=== PATIENT | male | born 1995 | race Hispanic/Latino ===

== ENCOUNTER 2024-04-17 21:36 | Inpatient (IN) | payer OTHER, SELFPAY ==
[2024-04-17] VITALS (10 sets, daily range): BP systolic 119–166; BP diastolic 60–103; BMI 18.3
[2024-04-17 15:42] LABS: % Basophils 0.7 % (0-2); % Immature Granulocytes 0.6 % (0-0.5); % Monocytes 2.8 % (1.7-9.3); % Neutrophils 91.9 % (42.2-75.2); Absolute Basophils 0.1 10^3/uL (0-0.2); Absolute Immature Granulocytes 0.1 10^3/uL (0-0.05); Absolute Lymphocytes 0.6 10^3/uL (1.2-3.4); Absolute Monocytes 0.4 10^3/uL (0.1-0.6); Absolute Neutrophils 14.1 10^3/uL (1.4-6.5); Hematocrit 45.5 % (39.0-52.0); Mean Corp Hgb Conc. 35.2 g/dL (33.0-37.0); Mean Corpuscular Hgb 31.8 pg (27.0-31.0); Mean Corpuscular Volume 90.5 fL (80.0-94.0); Mean Platelet Volume 8.9 fL (7.4-10.4); Nucleated Red Blood Cells % 0 % (-); Platelet Count 357 10^3/uL (130-400); Red Blood Cell Count 5.03 10^6/uL (4.70-6.10); Red Cell Dist. Width 11.5 % (11.5-14.5); White Blood Cell Count 15.3 10^3/uL (4.8-10.8)
[2024-04-17 15:59] LABS: ALT (SGPT) 65 U/L (0-50); AST (SGOT) 55 U/L (17-59); Albumin 5.7 g/dl (3.5-5.0); Alkaline Phosphatase 105 U/L (38-126); Blood Urea Nitrogen 9 mg/dl (9-20); Calcium 10.2 mg/dl (8.4-10.2); Carbon Dioxide 20 mmol/L (22-30); Chloride 100 mmol/L (98-107); Estimated Creatinine Clearance 123 ml/min; Glucose 141 mg/dl (70-99); Lipase 84 U/L (23-300); Potassium 4.4 mmol/L (3.5-5.1); Sodium 143 mmol/L (135-145); Total Bilirubin 1.2 mg/dl (0.2-1.3); Total Protein 9.3 g/dl (6.3-8.2); eGFR > 60.00
[2024-04-17 16:06] LABS: Troponin I < 0.012 ng/ml
--- NOTE | 2024-04-17 16:10 | ED.GENMED ---
Addendum entered and electronically signed by Albert Álvarez MD 04/17/24 22:48:
I was asked to evaluate this young patient with relatively sudden onset of upper abdominal pain radiating to the chest earlier today. He was awaiting CT scan. Associated with some nausea and vomiting. No history of same.
Patient was in CT. Because of the sudden severe chest pain and mild tachycardia elected to add CT angio of the chest. However on reexamination patient clinically is stable in no distress. He has mild epigastric tenderness. No rebound or guarding
no mass or hernia. Is warm and dry. He is perfusing well. He is in no respiratory distress. CT scans pending result.
CT scan showed no acute findings. Possible mild colitis. However patient with ongoing significant pain. Although medically stable. Will admit for further care and pain management
Original Note:
History of Present Illness
<Demetria Cortez MD, Resident - Last Filed: 04/17/24 16:28>
General
Chief Complaint: Chest Pain
Time Seen by Provider: 04/17/24 15:48
History of Present Illness
History of Present Illness:
28-year-old male presenting to the ED with abdominal pain. Patient does not speak [place]. Notes symptoms started this morning with severe abdominal pain (10 out of 10) located in the epigastric region. Pain is associated with nausea vomiting, is
constant and is not relieved by laying down. Unable to tolerate water and food. Has not taken any medications for his symptoms. Patient also notes left-sided headache which has been going on for a few days and blurry vision. Has a history of
headaches and feels headache is similar to prior episodes but constant. Denies changes in bowel movement, urinary symptoms, fever, bloody stools, melena.
Past History
<Demetria Cortez MD, Resident - Last Filed: 04/17/24 16:28>
Past History
ED Past Medical History: None
ED Past Surgical History: None
Review of Systems
<Demetria Cortez MD, Resident - Last Filed: 04/17/24 16:28>
Review of Systems
Constitutional: Reports sleep disturbance
EENT: Reports no symptoms
Respiratory: Reports no symptoms
Cardiac: Reports chest pain and palpitations
ABD/GI: Reports abdominal pain, nausea and vomiting
: Reports no symptoms
Musculoskeletal: Reports no symptoms
Skin: Reports no symptoms
Neurological: Reports dizzy and other (Blurry vision)
Endocrine: Reports no symptoms
Hematologic/Lymphatic: Reports no symptoms
Psychiatric: Reports no symptoms
Phy Exam
<Demetria Cortez MD, Resident - Last Filed: 04/17/24 16:28>
Physical Exam
Physical Exam:
GENERAL: Alert, awake, patient looks in pain
EYE: pupils equal and reactive
NECK: Supple, no significant adenopathy.
ENT: o/p clr, mmm.
CARDIAC: Regular rhythm. Tachycardic.
LUNGS: Clear breath sounds bilaterally, no acute respiratory distress, no wheezes/rales/rhonchi
ABDOMEN: Tenderness in RLQ, no r/g, no cvat
NEUROLOGICAL: Alert and oriented, no focal neuro deficits. [id number] negative. No nystagmus.
SKIN: Warm and dry, skin intact.
MUSCULOSKELETAL: No edema, well perfused.
PSYCH: Normal and appropriate interaction.
Scores
<Demetria Cortez MD, Resident - Last Filed: 04/17/24 16:28>
Heart Score for Chest Pain Patients
STEMI patient?: No
History: Slightly or Non-Suspicious
ECG: Normal
Age: </= 45 years
Risk Factors: No Risk Factors
Troponin: </= Normal Limit
Heart Score for Chest Pain Patients: 0
Heart Score Risk: 2.5% MACE over next 6 weeks
Course
<Demetria Cortez MD, Resident - Last Filed: 04/17/24 16:28>
Orders/Labs/Results
Orders:
Orders
04/17/24 14:20
Electrocardiogram (*1) Urgent
Reason for Study: Chest Pain
EKG- Treatment ONCE
04/17/24 15:31
Complete Blood Count/With Diff Urgent
Comprehensive Metabolic Panel Urgent
Lipase Urgent
Troponin I Urgent
04/17/24 16:13
Iohexol [Omnipaque] See Protocol PO NOW STA
04/17/24 16:14
CT Abd/pel W Iv And Oral Contr Urgent
Comment:
Reason For Exam: abd tenderness, leukocytosis
0.9% Sodium Chloride 1000 ml [Nss] 1,000 ml IV BOLUS
04/17/24 16:16
Ondansetron Orally Disint [Zofran Odt (Orally Disintegrating)] 4 mg PO NOW STA
Abnormal Lab Results
04/17/24
15:31
WBC 15.3 H 10^3/uL
(4.8-10.8)
MCH 31.8 H pg
(27.0-31.0)
Abs Immat Gran (auto) 0.1 H 10^3/uL
(0-0.05)
Absolute Neuts (auto) 14.1 H 10^3/uL
(1.4-6.5)
Absolute Lymphs (auto) 0.6 L 10^3/uL
(1.2-3.4)
Immature Gran % 0.6 H %
(0-0.5)
Neutrophils % 91.9 H %
(42.2-75.2)
Lymphocytes % 4.0 L %
(20.5-51.1)
Carbon Dioxide 20 L mmol/L
(22-30)
Creatinine 0.6 L mg/dL
(0.7-1.3)
Glucose 141 H mg/dl
(70-99)
ALT 65 H U/L
(0-50)
Total Protein 9.3 H g/dl
(6.3-8.2)
Albumin 5.7 H g/dl
(3.5-5.0)
04/17/24 15:31
04/17/24 15:31
Vital Signs
Initial and Last Documented VS:
Initial Vital Signs
Temp Pulse Resp BP Pulse Ox
98.1 F 135 18 150/86 97
04/17/24 14:31 04/17/24 14:31 04/17/24 14:31 04/17/24 14:31 04/17/24 14:31
Last Documented Vital Signs
Temp Pulse Resp BP Pulse Ox
98.1 F 135 18 150/86 97
04/17/24 14:31 04/17/24 14:31 04/17/24 14:31 04/17/24 14:31 04/17/24 14:31
<Siena Kingsley MD - Last Filed: 04/17/24 16:14>
Orders/Labs/Results
Orders:
Orders
04/17/24 14:20
Electrocardiogram (*1) Urgent
Reason for Study: Chest Pain
EKG- Treatment ONCE
04/17/24 15:31
Complete Blood Count/With Diff Urgent
Comprehensive Metabolic Panel Urgent
Lipase Urgent
Troponin I Urgent
04/17/24 16:13
Iohexol [Omnipaque] See Protocol PO NOW STA
04/17/24 16:14
CT Abd/pel W Iv And Oral Contr Urgent
Comment:
Reason For Exam: abd tenderness, leukocytosis
0.9% Sodium Chloride 1000 ml [Nss] 1,000 ml IV BOLUS
04/17/24 16:16
Ondansetron Orally Disint [Zofran Odt (Orally Disintegrating)] 4 mg PO NOW STA
Abnormal Lab Results
04/17/24
15:31
WBC 15.3 H 10^3/uL
(4.8-10.8)
MCH 31.8 H pg
(27.0-31.0)
Abs Immat Gran (auto) 0.1 H 10^3/uL
(0-0.05)
Absolute Neuts (auto) 14.1 H 10^3/uL
(1.4-6.5)
Absolute Lymphs (auto) 0.6 L 10^3/uL
(1.2-3.4)
Immature Gran % 0.6 H %
(0-0.5)
Neutrophils % 91.9 H %
(42.2-75.2)
Lymphocytes % 4.0 L %
(20.5-51.1)
Carbon Dioxide 20 L mmol/L
(22-30)
Creatinine 0.6 L mg/dL
(0.7-1.3)
Glucose 141 H mg/dl
(70-99)
ALT 65 H U/L
(0-50)
Total Protein 9.3 H g/dl
(6.3-8.2)
Albumin 5.7 H g/dl
(3.5-5.0)
04/17/24 15:31
04/17/24 15:31
Vital Signs
Initial and Last Documented VS:
Initial Vital Signs
Temp Pulse Resp BP Pulse Ox
98.1 F 135 18 150/86 97
04/17/24 14:31 04/17/24 14:31 04/17/24 14:31 04/17/24 14:31 04/17/24 14:31
Last Documented Vital Signs
Temp Pulse Resp BP Pulse Ox
98.1 F 135 18 150/86 97
04/17/24 14:31 04/17/24 14:31 04/17/24 14:31 04/17/24 14:31 04/17/24 14:31
<Demetria Cortez MD, Resident - Last Filed: 04/17/24 16:28>
MDM/Problems Addressed
Differential Diagnosis Includes:
Appendicitis
Cholelithiasis
Complicated PUD
Pancreatitis
ACS
Nephrolithiasis
MDM/Problems Addressed:
- Zofran
- IVF
- CBC, CMP
- EKG, Troponin
- Abd/pelvis CT w IV and oral contrast
<Demetria Cortez MD, Resident - Last Filed: 04/17/24 16:28>
*Critical Care Note
Total Time (30-74mins, 75-104mins- exclusive of procedures): Not Applicable
ED Attending Note
<Demetria Cortez MD, Resident - Last Filed: 04/17/24 16:28>
-
Portions of this chart may have been created with voice recognition software.� Occasional wrong word or��sound alike� substitutions may have occurred due to the inherent limitations of voice recognition software.
<Siena Kingsley MD - Last Filed: 04/17/24 16:14>
ED Attending Note
Patient seen and examined by attending physician: Yes
I performed a history and physical exam of patient and discussed management with resident, I reviewed resident's note and agree with documented findings and plan of care.: Yes
ED Attending Note:
Patient appears slightly flushed but nontoxic. On exam patient has epigastric and right lower quadrant tenderness. LFTs look reasonably normal. We are concern for possibly acute appendicitis. CT with IV and oral contrast will be ordered at this
time. Patient has no sign of respiratory distress.
Discharge Plan
Departure
Referrals:
NONE,* [Family Provider] -
Interventions
Interventions:
*Risk Screen - Suicide Last Done: 04/17/24 14:31
*General Assessment Last Done: 04/17/24 14:31
Discharge Date and Time
Print Language: TRINIDADIAN
[2024-04-17] MEDS: OMNIPAQUE 50 ML PO (16:39)
[2024-04-17] MEDS: ZOFRAN ODT (ORALLY DISINTEGRATING) 4 MG PO (16:41)
[2024-04-17] MEDS: NSS 1000 IV ×2 (16:44→23:16)
[2024-04-17] MEDS: TORADOL 30 MG IV (17:26)
--- NOTE | 2024-04-17 18:23 | ED.GENMED ---
History of Present Illness
<Albert Álvarez MD - Last Filed: 04/17/24 19:25>
General
Chief Complaint: Chest Pain
Time Seen by Provider: 04/17/24 15:48
Past History
<Demetria Cortez MD, Resident - Last Filed: >
Past History
ED Past Medical History: None
ED Past Surgical History: None
Course
<Albert Álvarez MD - Last Filed: 04/17/24 19:25>
Orders/Labs/Results
Orders:
Orders
04/17/24 14:20
Electrocardiogram (*1) Urgent
Reason for Study: Chest Pain
EKG- Treatment ONCE
04/17/24 15:31
Complete Blood Count/With Diff Urgent
Comprehensive Metabolic Panel Urgent
Lipase Urgent
Troponin I Urgent
04/17/24 16:13
Iohexol [Omnipaque] See Protocol PO NOW STA
04/17/24 16:14
CT Abd/pel W Iv And Oral Contr Urgent
Comment:
Reason For Exam: abd tenderness, leukocytosis
0.9% Sodium Chloride 1000 ml [Nss] 1,000 ml IV BOLUS
04/17/24 16:16
Ondansetron Orally Disint [Zofran Odt (Orally Disintegrating)] 4 mg PO NOW STA
04/17/24 17:04
Ketorolac [Toradol] 30 mg IV NOW STA
04/17/24 18:16
Electrocardiogram (*1) Urgent
Reason for Study: Chest Pain
EKG- Treatment ONCE
04/17/24 18:45
CT Chest Angio W/wo Iv Contras Urgent
Comment:
Reason For Exam: Sudden chest pain and abdominal pain
Abnormal Lab Results
04/17/24
15:31
WBC 15.3 H 10^3/uL
(4.8-10.8)
MCH 31.8 H pg
(27.0-31.0)
Abs Immat Gran (auto) 0.1 H 10^3/uL
(0-0.05)
Absolute Neuts (auto) 14.1 H 10^3/uL
(1.4-6.5)
Absolute Lymphs (auto) 0.6 L 10^3/uL
(1.2-3.4)
Immature Gran % 0.6 H %
(0-0.5)
Neutrophils % 91.9 H %
(42.2-75.2)
Lymphocytes % 4.0 L %
(20.5-51.1)
Carbon Dioxide 20 L mmol/L
(22-30)
Creatinine 0.6 L mg/dL
(0.7-1.3)
Glucose 141 H mg/dl
(70-99)
ALT 65 H U/L
(0-50)
Total Protein 9.3 H g/dl
(6.3-8.2)
Albumin 5.7 H g/dl
(3.5-5.0)
04/17/24 15:31
04/17/24 15:31
Vital Signs
Initial and Last Documented VS:
Initial Vital Signs
Temp Pulse Resp BP Pulse Ox
98.1 F 135 18 150/86 97
04/17/24 14:31 04/17/24 14:31 04/17/24 14:31 04/17/24 14:31 04/17/24 14:31
Last Documented Vital Signs
Temp Pulse Resp BP Pulse Ox
98.1 F 98 17 127/60 97
04/17/24 14:31 04/17/24 18:30 04/17/24 18:30 04/17/24 18:00 04/17/24 18:30
<Demetria Cortez MD, Resident - Last Filed: >
Orders/Labs/Results
Orders:
Orders
04/17/24 14:20
Electrocardiogram (*1) Urgent
Reason for Study: Chest Pain
EKG- Treatment ONCE
04/17/24 15:31
Complete Blood Count/With Diff Urgent
Comprehensive Metabolic Panel Urgent
Lipase Urgent
Troponin I Urgent
04/17/24 16:13
Iohexol [Omnipaque] See Protocol PO NOW STA
04/17/24 16:14
CT Abd/pel W Iv And Oral Contr Urgent
Comment:
Reason For Exam: abd tenderness, leukocytosis
0.9% Sodium Chloride 1000 ml [Nss] 1,000 ml IV BOLUS
04/17/24 16:16
Ondansetron Orally Disint [Zofran Odt (Orally Disintegrating)] 4 mg PO NOW STA
04/17/24 17:04
Ketorolac [Toradol] 30 mg IV NOW STA
04/17/24 18:16
Electrocardiogram (*1) Urgent
Reason for Study: Chest Pain
EKG- Treatment ONCE
04/17/24 18:45
CT Chest Angio W/wo Iv Contras Urgent
Comment:
Reason For Exam: Sudden chest pain and abdominal pain
Abnormal Lab Results
04/17/24
15:31
WBC 15.3 H 10^3/uL
(4.8-10.8)
MCH 31.8 H pg
(27.0-31.0)
Abs Immat Gran (auto) 0.1 H 10^3/uL
(0-0.05)
Absolute Neuts (auto) 14.1 H 10^3/uL
(1.4-6.5)
Absolute Lymphs (auto) 0.6 L 10^3/uL
(1.2-3.4)
Immature Gran % 0.6 H %
(0-0.5)
Neutrophils % 91.9 H %
(42.2-75.2)
Lymphocytes % 4.0 L %
(20.5-51.1)
Carbon Dioxide 20 L mmol/L
(22-30)
Creatinine 0.6 L mg/dL
(0.7-1.3)
Glucose 141 H mg/dl
(70-99)
ALT 65 H U/L
(0-50)
Total Protein 9.3 H g/dl
(6.3-8.2)
Albumin 5.7 H g/dl
(3.5-5.0)
04/17/24 15:31
04/17/24 15:31
Vital Signs
Initial and Last Documented VS:
Initial Vital Signs
Temp Pulse Resp BP Pulse Ox
98.1 F 135 18 150/86 97
04/17/24 14:31 04/17/24 14:31 04/17/24 14:31 04/17/24 14:31 04/17/24 14:31
Last Documented Vital Signs
Temp Pulse Resp BP Pulse Ox
98.1 F 98 17 127/60 97
04/17/24 14:31 04/17/24 18:30 04/17/24 18:30 04/17/24 18:00 04/17/24 18:30
ED Attending Note
<Albert Álvarez MD - Last Filed: 04/17/24 19:25>
ED Attending Note
Patient seen and examined by attending physician: Yes
I performed a history and physical exam of patient and discussed management with resident, I reviewed resident's note and agree with documented findings and plan of care.: Yes
ED Attending Note:
I was asked to evaluate this young patient with relatively sudden onset of upper abdominal pain radiating to the chest earlier today. He was awaiting CT scan. Associated with some nausea and vomiting. No history of same.
Patient was in CT. Because of the sudden severe chest pain and mild tachycardia elected to add CT angio of the chest. However on reexamination patient clinically is stable in no distress. He has mild epigastric tenderness. No rebound or guarding
no mass or hernia. Is warm and dry. He is perfusing well. He is in no respiratory distress. CT scans pending result.
<Demetria Cortez MD, Resident - Last Filed: >
-
Portions of this chart may have been created with voice recognition software.� Occasional wrong word or��sound alike� substitutions may have occurred due to the inherent limitations of voice recognition software.
Discharge Plan
Departure
Referrals:
NONE,* [Family Provider] -
Interventions
Interventions:
*Risk Screen - Suicide Last Done: 04/17/24 14:31
*General Assessment Last Done: 04/17/24 14:31
ED- Fall Risk Assessment Last Done: 04/17/24 17:56
ED- Cardiac Assessment Last Done: 04/17/24 17:56
Discharge Date and Time
Print Language: SERBIAN
--- NOTE | 2024-04-17 21:05 | HPS.HSE ---
Family Physician
-
Family Physician: * NONE
Chief Complaint
-
epigastric pain and N/V
History of Present Illness
28M No significant PMH seen at ER:
- acute onset of intractable epigastric pain radiating to his chest
- associated nausea/vomiting
Of note:Reported drinking some kind of ETOH for last 3 - 4days
Medical History
Past Medical History
Past Medical History: Reports None
Past Surgical History: Reports None
Social History
Tobacco: Non-smoker
Alcohol: Binge drinker (Reported drinking some kind of ETOH for last 3 - 4days )
Family History
Family History: Not pertinent
Allergies / Home Medications
Allergies reflects when Allergies were last updated in [employer].
Home Medications with original date entered in [employer]
Allergy/Medication List:
Allergies
Allergy/AdvReac Type Severity Reaction Status Date / Time
No Known Allergies Allergy Unverified 04/17/24 14:31
If medication reconciliation has not been performed, why?: Medication List N/A
Review of Systems
-
Constitutional: Reports No Symptoms
EENT: Reports No Symptoms
Respiratory: Reports No Symptoms
Cardiac: Reports No Symptoms
Abdomen/GI: Reports Abdominal Pain, Nausea and Vomiting; Denies Diarrhea
: Reports No Symptoms
Musculoskeletal: Reports No Symptoms
Skin: Reports No Symptoms
Neurological: Reports No Symptoms
Endocrine: Reports No Symptoms
Hematologic/Lymphatic: Reports No Symptoms
Psych: Reports No Symptoms
Physical Exam
Vital Signs
Vital Signs
Temp Pulse Resp BP Pulse Ox
98.1 F 98 17 127/60 97
04/17/24 14:31 04/17/24 18:30 04/17/24 18:30 04/17/24 18:00 04/17/24 18:30
Physical Exam
General: Well Developed, Well Nourished and No Apparent Distress
HEENT: NormoCephalic, Moist mucous membranes and Atraumatic
Respiratory: Clear
Cardiac: S1/S2 and Regular Rhythm; No Murmur or Rub
Rectal: Deferred by Provider
Musculoskeletal: No Clubbing, No Cyanosis and No Edema
Skin: No Rash
Neuro: Nonfocal/grossly intact
Laboratory Results
-
04/17/24 15:31
04/17/24 15:
Laboratory Results
Total Bilirubin 1.2 mg/dl (0.2-1.3) 04/17/24 15:
AST 55 U/L (17-59) 04/17/24 15:
ALT 65 U/L (0-50) H 04/17/24 15:
Alkaline Phosphatase 105 U/L (38-126) 04/17/24 15:
Troponin I < 0.012 ng/ml 04/17/24 15:31
Lipase 84 U/L (23-300) 04/17/24 15:31
Data Reviewed
-
CT Scan: Report Reviewed by me
Lab Data: Labs Reviewed by me
Impression/Plan
-
Reviewed VS: Unremarkable
Data
Leucocytosis
Marginal Hypocarbia
Elevated ALT
Nl Lipase
NEG TPNI
CT Abd/pel W Iv And Oral Contr; CT Chest Angio W/wo Iv Contrast
- No aortic aneurysm or dissection. Subtle kink in the distal aortic arch, without stenosis, suggesting developmental variant pseudocoarctation.
- No pulmonary embolism.
- Underdistention versus mild colonic wall thickening.
Nonspecific mild colitis cannot be excluded in the proper clinical setting.
- No bowel obstruction. No obstructive uropathy.
- No evidence of pneumonia.
- Mild gynecomastia.
- Fatty infiltration of liver.
EKG
SINUS TACHYCARDIA
OTHERWISE NORMAL ECG
WHEN COMPARED WITH ECG OF 17-APR-2024 14:26,
NO SIGNIFICANT CHANGE WAS FOUND
NO PRIOR DH or hospitalist admission:
ASSESSMENT & PLAN
Acute intractable epigastric pain with N/V but no diarrhea
Afebrile , Leucocytosis, Marginal Hypocarbia . metabolic acidosis due to GI loss
Elevated ALT
DDX: acute gastritis suspect ETOH induced gastritis , unlikley acute colitis in the absence of diarrhea
Of note:Reported drinking some kind of ETOH for last 3 - 4days
- check UDS to be thorough
- check LA
- IV NS and clear ADAT
- empiric IV PPI daily
- antiemetics
- PRN Analgesia
- Hold off ABx for now
- GI consult
DVT Px: SCD
Full code
IP MS
[2024-04-17] MEDS: TYLENOL 1000 MG PO (21:38)
[2024-04-17 22:01] LABS: Lactic Acid 2.5 mmol/L (0.7-2.0)
[2024-04-17] MEDS: NSS 500 IV (23:18)
[2024-04-18] VITALS: BP 145/88
[2024-04-18 00:01] VITALS: BMI 23.1
[2024-04-18] MEDS: MELATONIN 5 MG PO (00:48)
[2024-04-18] MEDS: PROTONIX IV 40 MG IV ×2 (00:48→07:28)
[2024-04-18] MEDS: NSS (PRESERVATIVE FREE) 10 ML IV ×2 (00:48→07:28)
[2024-04-18 01:43] LABS: Urine Albumin Negative (Neg - Trace); Urine Bilirubin Negative (Negative); Urine Character Clear (Clear); Urine Color Yellow; Urine Glucose Negative (Negative); Urine Ketone Negative (Negative); Urine Leukocyte Negative (Negative); Urine Nitrite Negative (Negative); Urine Occult Blood Negative (Negative); Urine Specific Gravity 1.005 (<1.030); Urine Urobilinogen Negative (Neg - 1+)
[2024-04-18 01:58] LABS: Amphetamines Negative (Negative); Barbiturates Negative (Negative); Benzodiazepines Negative (Negative); Buprenorphine Negative (Negative); Cocaine Negative (Negative); Marijuana Negative (Negative); Methadone Negative (Negative); Methamphetamines Negative (Negative); Opiates Negative (Negative); Phencyclidine Negative (Negative); Tricyclic Antidepressants Negative (Negative)
[2024-04-18 02:04] LABS: Lactic Acid 1.8 mmol/L (0.7-2.0)
[2024-04-18 05:59] LABS: ALT (SGPT) 40 U/L (0-50); AST (SGOT) 36 U/L (17-59); Albumin 4.3 g/dl (3.5-5.0); Alkaline Phosphatase 68 U/L (38-126); Blood Urea Nitrogen 8 mg/dl (9-20); Calcium 9.4 mg/dl (8.4-10.2); Carbon Dioxide 27 mmol/L (22-30); Chloride 102 mmol/L (98-107); Estimated Creatinine Clearance > 125 ml/min; Glucose 95 mg/dl (70-99); Potassium 3.7 mmol/L (3.5-5.1); Sodium 138 mmol/L (135-145); Total Bilirubin 1.3 mg/dl (0.2-1.3); eGFR > 60.00
[2024-04-18 06:34] LABS: Hematocrit 36.6 % (39.0-52.0); Hemoglobin 13.1 g/dL (13.0-18.0); Mean Corp Hgb Conc. 35.8 g/dL (33.0-37.0); Mean Corpuscular Hgb 32.8 pg (27.0-31.0); Mean Corpuscular Volume 91.5 fL (80.0-94.0); Mean Platelet Volume 9.4 fL (7.4-10.4); Platelet Count 256 10^3/uL (130-400); Red Cell Dist. Width 11.4 % (11.5-14.5); White Blood Cell Count 8.8 10^3/uL (4.8-10.8)
[2024-04-18 07:20] VITALS: BP 120/70
[2024-04-18] MEDS: SENOKOT-S 1 TABLET PO (07:29)
[2024-04-18] MEDS: MIRALAX 17 GRAMS PO (07:29)
--- NOTE | 2024-04-18 09:04 | W.PN.HOSP.TC ---
Today's Communication/Plan
-
Discharge planning today.
Assessment / Plan
Assessment / Plan
Physical exam:
General: Well Developed, Well Nourished and No Apparent Distress
HEENT: Normocephalic, Atraumatic and Moist Mucous Membranes
Respiratory: Clear to Auscultation; Negative Wheezes, Rales or Rhonchi
Cardiac: Regular Rhythm and S1/S2
GI: Soft, Nontender and Nondistended
Musculoskeletal: No Clubbing, No Cyanosis and No Edema
Neuro: Awake, Alert and Oriented
Psych: Calm
A/P:
Abdominal pain due to gastritis and esophagitis alcohol-related (there could have been an element of gastroenteritis):
Continue PPI
Advance diet
GI consult appreciated
Plan to discharge today
Insomnia:
Can start melatonin
Alcohol use disorder:
MSA protocol
Alcohol cessation advised
DVT prophylaxis:
SCDs
CODE STATUS:
Full code
Anticipated Discharge: Today
Subjective/Interval History
-
Date of Service: April 18, 2024
Patient abdominal pain improved. No nausea or vomiting. Has some loose stools. Afebrile
Objective Data
-
Labs:
Laboratory Results
04/18/24
05:03
WBC 8.8
Hgb 13.1
Hct 36.6 L
Plt Count 256 D
Sodium 138
Potassium 3.7
Chloride 102
Carbon Dioxide 27
BUN 8 L
Creatinine 0.6 L
Glucose 95
Calcium 9.4
Total Bilirubin 1.3
AST 36
ALT 40
Alkaline Phosphatase 68
Vital Signs:
Vital Signs
Temp Pulse Resp BP Pulse Ox
98.3 F 69 16 120/70 100
04/18/24 07:20 04/18/24 07:20 04/18/24 07:20 04/18/24 07:20 04/18/24 07:20
I&O
04/17/24 04/18/24 04/19/24
06:59 06:59 06:59
Intake Total 480 / 480
Balance 480 / 480
[2024-04-18 09:51] LABS: Alcohol None Detected; GGTP 184 U/L (15-73)
[2024-04-18] MEDS: THIAMINE INJECTION 200 MG IV (09:59)
[2024-04-18] MEDS: FOLVITE 1 MG PO (09:59)
[2024-04-18] MEDS: NSS 1000 IV (09:59)
[2024-04-18 10:48] LABS: B-Hydroxybutyrate 0.24 mmol/L (0.02-0.27)
--- NOTE | 2024-04-18 11:25 | CON.GI ---
Consultation
-
Date/Time Consultation Requested: 04/18/24
Date/Time Consultation Performed: 04/18/24
Requesting Provider:
Performing Provider:
Reason for Consultation: n/v
Medical History
Chief Complaint / HPI
Chief Complaint: epigastric pain, n/v
History of Present Illness:
This is a 28-year-old Portuguese-speaking male with no significant past medical history other than headaches and occasional binge drinking and history was obtained with use of language line who was in his usual state of health up until yesterday when
he started to have epigastric pain with nausea vomiting and presented to the ER. He says that recently has been having a headache and is having hard time sleeping so has been drinking more ETOH and was drinking a few drinks of tequila every day for
the past couple of days. No diarrhea or constipation no rectal bleeding or melena no fevers or chills. He denies any chest pain or shortness of breath. He denies any symptoms of reflux prior to this. His abdominal pain and nausea vomiting have
resolved he is tolerating clear liquids he still complains of a headache
Past Medical History
Past Medical History: Other (headaches)
Past Surgical History: None
Social History
Tobacco: Non-Smoker
Alcohol: Binge Drinker
Drug: None
Allergies / Home Medications
Allergy/AdvReac Type Severity Reaction Status Date / Time
No Known Allergies Allergy Unverified 04/17/24 14:31
Review of Systems
-
All other systems: A 12 pt ROS was Negative except as stated above in HPI
Vital Signs
Temp Pulse Resp BP Pulse Ox
98.3 F 69 16 120/70 100
04/18/24 07:20 04/18/24 07:20 04/18/24 07:20 04/18/24 07:20 04/18/24 07:20
Physical Exam
Exam
General: No Apparent Distress
HEENT: Normocephalic
Respiratory: Clear
Cardiac: S1/S2
GI: Soft, Non Tender, Non Distended and Normal Bowel Sounds
Musculoskeletal: No Clubbing
Neuro: Awake, Alert and Oriented
Psych: Calm
Results
WBC 8.8 10^3/uL (4.8-10.8) 04/18/24 05:03
Hgb 13.1 g/dL (13.0-18.0) 04/18/24 05:03
Hct 36.6 % (39.0-52.0) L 04/18/24 05:03
MCV 91.5 fL (80.0-94.0) 04/18/24 05:03
Plt Count 256 10^3/uL (130-400) D 04/18/24 05:03
Absolute Neuts (auto) 14.1 10^3/uL (1.4-6.5) H 04/17/24 15:31
Sodium 138 mmol/L (135-145) 04/18/24 05:03
Potassium 3.7 mmol/L (3.5-5.1) 04/18/24 05:03
Chloride 102 mmol/L (98-107) 04/18/24 05:03
Carbon Dioxide 27 mmol/L (22-30) 04/18/24 05:03
BUN 8 mg/dl (9-20) L 04/18/24 05:03
Creatinine 0.6 mg/dL (0.7-1.3) L 04/18/24 05:03
Calcium 9.4 mg/dl (8.4-10.2) 04/18/24 05:03
Total Bilirubin 1.3 mg/dl (0.2-1.3) 04/18/24 05:03
AST 36 U/L (17-59) 04/18/24 05:03
ALT 40 U/L (0-50) 04/18/24 05:03
Alkaline Phosphatase 68 U/L (38-126) 04/18/24 05:03
Lipase 84 U/L (23-300) 04/17/24 15:31
Diagnostic Image Results:
04/17/24 CT Abd/pel W Iv And Oral Contr; CT Chest Angio W/wo Iv Contrast
IMPRESSION:
No aortic aneurysm or dissection. Subtle kink in the distal aortic arch, without stenosis, suggesting developmental variant pseudocoarctation.
No pulmonary embolism.
Underdistention versus mild colonic wall thickening. Nonspecific mild colitis cannot be excluded in the proper clinical setting.
No bowel obstruction. No obstructive uropathy.
No evidence of pneumonia.
Mild gynecomastia.
Fatty infiltration of liver.
Prior GI Procedures:
EGD:none
Colonoscopy: none
Assessment / Plan
-
Epigastric pain with nausea vomiting most likely related to alcohol gastritis or esophagitis since he has recently been drinking a few drinks of tequila almost every night to be able to sleep and for his headache. His symptoms have improved with
PPI would continue this for the next 2 to 4 weeks will advance his diet and if he tolerates okay to DC home, if his symptoms recur then consider endoscopy tomorrow. CT was pretty unremarkable no evidence of gallstones or pancreatitis his LFTs have
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 there was questionable colitis noted on CT but currently has no symptoms so doubt colitis hold off on antibiotics. also
encouraged him to avoid alcohol after DC and I told him to follow-up with his PCP for his headaches and insomnia.
Data Reviewed
-
CT Scan: Report Reviewed by me
-
-
Thank you for consultation and allowing me to participate in the patient's care. Please call the [facility] consultant GI physician during the after hours with any questions or concerns.
--- NOTE | 2024-04-18 13:18 | W.DCSUMMARY ---
Discharge Summary
Discharge Data
Date of Admission: 04/17/24
Date of Discharge: 04/18/24
-
Pending Results: No
Hospital Course
Patient 28 years old male with no significant past medical hist came into the hospital with abdominal pain in the setting of alcohol binge drinking. Patient was started on PPI and he had CT of the abdomen with no significant normality except for
mild thickening. GI was consulted. He had remained afebrile and hemodynamically stable. He also was able to tolerate advancing diet without any problems. He was also placed on alcohol withdrawal protocol but he has not exhibiting signs of
withdrawal. He was seen by [facility] and support has been given. GI cleared him for discharge today. He will be discharged in stable condition today.
Discharge Plan
-
Patient Disposition: Home (Routine Discharge)
Discharge Diagnosis/Procedures: Abdominal pain due to alcohol gastritis and esophagitis. Nausea and vomiting. Alcohol use disorder. Diarrhea.
Diet: Regular
Activity: As tolerated
Blood Work: Please PCP to order CBC, BMP within 1 week
Referrals:
Primary care, provider [Other] (See less than 1 week)
Manisha Lora MD [Active] - in two to four weeks
Additional Discharge Medication Instructions: Avoid alcohol.
Prescriptions:
New
omeprazole 20 mg tablet,delayed release (DR/EC)
40 mg PO DAILY 30 Days Qty: 60 0RF
melatonin 5 mg capsule
5 mg PO HS 30 Days Qty: 30 0RF
Discharge Orders:
Discharge Patient (As Directed); Ordered 04/18/24
Ordered By: Addison Araujo
Discharge Date and Time
Print Language: IRAQI
--- NOTE | 2024-04-18 14:43 | CM ---
Addendum entered by Saima Pace 04/18/24 15:07:
Spoke with Cullen from [facility]
Per Cullen - met pt at bedside and used regulatory law specialist. Given resources for [facility].
Original Note:
Met with pt at bedside
Spoke with pt using bridge contractor #[id number]
Pt reports he is unsure of his address, he lives on [address] in [place] with his uncle in a 2 story home
Cell phone # [phone]
Reports currently unemployed. Independent with ADL's and does not drive
No DME
Does not have a PCP or selected pharmacy
Reports will have ride home at discharge
Pt provided information for the [facility] clinic in [place]
CM consult for substance abuse counseling
Pt admits to drinking alcohol daily as he 'can not sleep:
Offered counseling services through [facility] - would like information
Called [facility] and spoke with Cullen. Cullen reports he will come to see pt today to offer information
Plan - home with resources for outpatient provider and [facility] resources
[2024-04-18 15:15] VITALS: BP 137/88
== END 2024-04-18 18:15 | disposition home or self-care (01) | DRG 392 ==
LOC: 2 NORTH 21:36
PROVIDERS: Emergency Medicine; Nurse Practitioner Family; ADMITTING PHYSICIAN Internal Medicine; ATTENDING PHYSICIAN Hospitalist; CONSULT PHYSICIAN Internal Medicine Gastroenterology; EMERGENCY PHYSICIAN Emergency Medicine
DX: K29.20 Alcoholic gastritis without bleeding (principal); K70.9 Alcoholic liver disease, unspecified; K20.80 Other esophagitis without bleeding; F10.10 Alcohol abuse, uncomplicated; R07.9 Chest pain, unspecified; D72.829 Elevated white blood cell count, unspecified; G47.00 Insomnia, unspecified; K76.0 Fatty (change of) liver, not elsewhere classified; N62 Hypertrophy of breast; R51.9 Headache, unspecified; H53.8 Other visual disturbances
CPT/HCPCS: 71275; 74177; 80053; 80306; 81003; 82010; 82077; 82977; 83605; 83690; 84484; 85025; 85027; 93005; 96361; 96374; 99285; Q9967

== ENCOUNTER 2024-08-14 18:41 | Emergency (ER) | payer OTHER, SELFPAY ==
[2024-08-14 18:45] VITALS: BP 154/89
[2024-08-14 18:59] LABS: % Basophils 1.4 % (0-2); % Eosinophils 2.2 % (0-6); % Immature Granulocytes 0.2 % (0-0.5); % Lymphocytes 17.5 % (20.5-51.1); % Monocytes 9.3 % (1.7-9.3); % Neutrophils 69.4 % (42.2-75.2); Absolute Basophils 0.1 10^3/uL (0-0.2); Absolute Eosinophils 0.1 10^3/uL (0-0.7); Absolute Monocytes 0.6 10^3/uL (0.1-0.6); Absolute Neutrophils 4.1 10^3/uL (1.4-6.5); Hematocrit 39.1 % (39.0-52.0); Hemoglobin 14.1 g/dL (13.0-18.0); Mean Corp Hgb Conc. 36.1 g/dL (33.0-37.0); Mean Corpuscular Hgb 31.9 pg (27.0-31.0); Mean Corpuscular Volume 88.5 fL (80.0-94.0); Mean Platelet Volume 8.7 fL (7.4-10.4); Nucleated Red Blood Cells % 0 % (-); Platelet Count 286 10^3/uL (130-400); Red Blood Cell Count 4.42 10^6/uL (4.70-6.10); Red Cell Dist. Width 11.3 % (11.5-14.5); White Blood Cell Count 5.9 10^3/uL (4.8-10.8)
[2024-08-14 19:11] LABS: Urine Albumin Negative (Neg - Trace); Urine Bilirubin Negative (Negative); Urine Character Clear (Clear); Urine Color Yellow; Urine Glucose Negative (Negative); Urine Ketone Negative (Negative); Urine Leukocyte Negative (Negative); Urine Nitrite Negative (Negative); Urine Occult Blood Negative (Negative); Urine Urobilinogen Negative (Neg - 1+)
[2024-08-14 19:18] LABS: ALT (SGPT) 86 U/L (0-50); AST (SGOT) 56 U/L (17-59); Albumin 5.1 g/dl (3.5-5.0); Alkaline Phosphatase 92 U/L (38-126); Blood Urea Nitrogen 6 mg/dl (9-20); Carbon Dioxide 27 mmol/L (22-30); Chloride 100 mmol/L (98-107); Glucose 135 mg/dl (70-99); Sodium 139 mmol/L (135-145); Total Bilirubin 0.8 mg/dl (0.2-1.3); Total Protein 8.5 g/dl (6.3-8.2); eGFR > 60.00
[2024-08-14 19:23] LABS: COVID-19 Antigen Negative (Negative)
[2024-08-14 19:30] LABS: Troponin I < 0.012 ng/ml
--- NOTE | 2024-08-14 22:03 | ED.GENMED ---
History of Present Illness
General
Chief Complaint: Cold/Flu/URI Symptoms
Source: patient
Exam Limitations: none
Time Seen by Provider: 08/14/24 21:52
History of Present Illness
History of Present Illness:
See MDM
Past History
Past History
ED Past Medical History: None
ED Past Surgical History: None
Phy Exam
Physical Exam
Physical Exam:
See MDM
Course
Orders/Labs/Results
Orders:
Orders
08/14/24 18:48
Electrocardiogram (*1) Urgent
Reason for Study: Chest Pain
EKG- Treatment ONCE
08/14/24 18:50
COVID-19 Antigen Urgent
Source: Nasal Swab
Complete Blood Count/With Diff Urgent
Comprehensive Metabolic Panel Urgent
Troponin I Urgent
UA Reflex to Culture [Urinalysis Reflex To Culture] Urgent
Date Specimen was Collected: 08/14/24
Time Specimen was Collected: 18:49
Influenza A+B Rapid Molecular Urgent
STEFFANY Source: Nasal Swab
Specimen Description:
Date Specimen was Collected: 08/14/24
Time Specimen was Collected: 18:49
08/14/24 22:01
Lorazepam [Ativan] 1 mg PO NOW STA
08/15/24 00:00
CT Head W/o Iv Contrast Urgent
Reason For Exam: headache, dizzy
Abnormal Lab Results
08/14/24
18:50
RBC 4.42 L 10^6/uL
(4.70-6.10)
MCH 31.9 H pg
(27.0-31.0)
RDW 11.3 L %
(11.5-14.5)
Absolute Lymphs (auto) 1.0 L 10^3/uL
(1.2-3.4)
Lymphocytes % 17.5 L %
(20.5-51.1)
BUN 6 L mg/dl
(9-20)
Creatinine 0.5 L mg/dL
(0.7-1.3)
Glucose 135 H mg/dl
(70-99)
ALT 86 H U/L
(0-50)
Total Protein 8.5 H g/dl
(6.3-8.2)
Albumin 5.1 H g/dl
(3.5-5.0)
08/14/24 18:50
08/14/24 18:50
Vital Signs
Initial and Last Documented VS:
Initial Vital Signs
Temp Pulse Resp BP Pulse Ox
98.8 F 104 20 154/89 99
08/14/24 18:45 08/14/24 18:45 08/14/24 18:45 08/14/24 18:45 08/14/24 18:45
Last Documented Vital Signs
Temp Pulse Resp BP Pulse Ox
98.5 F 69 20 131/82 100
08/14/24 22:09 08/15/24 01:13 08/14/24 18:45 08/15/24 01:13 08/15/24 01:13
MDM/Problems Addressed
Differential Diagnosis Includes:
HPI and MDM Narrative:
29-year-old male presenting with 1 year of vague symptoms. Patient complains of intermittent headache, intermittent dizziness, intermittent hair loss, intermittent blurry vision and intermittent rash and insomnia. Is not quite clear why he chose
to come to the emergency department today. He has not followed up with a primary care doctor to discuss the symptoms. On exam, he is sitting in bed comfortably. He does appear anxious and shaky. I did question alcohol use. Patient states he was
drinking tequila and beer last night. I question whether he has the same a day or 2 after drinking. Patient does acknowledge that there is a correlation to drinking but states it does happen sometimes when he does not drink. We also question the
possibility of anxiety. Regardless, blood work was done prior to my assessment showing no significant abnormality. He does complain of a headache. For completion sake, will obtain CT head but discussed this should be further worked out in the
outpatient setting
Physical exam
General: Well appearing and non-toxic
HEENT: protecting airway. Pupils equal reactive. EOMI
Neck: supple
CV: No evidence of cyanosis. Regular rate and rhythm
Resp: No accessory muscle use. Lungs clear
Abd: Non-distended
Extremities: No deformities
Neuro: alert. No focal deficit
Psych: Appears anxious
Skin: Intact
Problems Addressed including Acute and Chronic Conditions affecting care:
1. Feeling unwell
Acuity: acute
Prognosis: stable
Details: Intermittent symptoms for approximately 1 year. Labs without clinically significant abnormalities. Will obtain CT head but discussed outpatient follow-up
Updates
CT head negative. Discussed return precautions
Differential Diagnosis (but not limited to): Anxiety, depression, alcohol abuse, diabetes,
Testing considered: UDS, alcohol level
Drug therapy (if applicable): OTC meds, please see d/c instruction regarding Rx drugs
Amount and/or Complexity of Data Reviewed
Clinical info obtained from: Patient
External data reviewed: N/A
Labs I independently reviewed (but not limited to): Troponin normal, mild hyperglycemia
Radiology: The CT scan was personally and independently reviewed. In addition, official CT report reviewed.
Pulse Ox: not hypoxic
EKG independently reviewed: Sinus rhythm, normal axis, no STEMI
[place]: Sinus rhythm
Critical Care: N/A
Risk of Complication:
Social Determinants of health: Good social support
Discussed with other providers: N/A
Escalation of Care includes Admit/Obs: After being observed in the Emergency Department, pt stable for discharge.
Occasional wrong word or 'sound a like' substitutions may have occurred due to the inherent limitations of voice recognition software. Read the chart carefully and recognize, using context, where substitutions have occurred.
*Critical Care Note
Total Time (30-74mins, 75-104mins- exclusive of procedures): Not Applicable
ED Attending Note
-
Portions of this chart may have been created with voice recognition software.� Occasional wrong word or��sound alike� substitutions may have occurred due to the inherent limitations of voice recognition software.
Discharge Plan
Departure
Patient Disposition: Home (Routine Discharge)
Date of Disposition: 08/15/24
Time of Disposition: 01:28
Patient with high blood pressure during this ER visit?: No
Discharge Problem:
Multiple complaints
Prescriptions:
No Action
omeprazole 20 mg tablet,delayed release (DR/EC)
40 mg PO DAILY 30 Days Qty: 60 0RF
melatonin 5 mg capsule
5 mg PO HS 30 Days Qty: 30 0RF
Referrals:
[facility] [Outside]
Activity Restrictions/Additional Instructions:
Please return for any worsening symptoms.
You may return at any time if you have further concerns.
Please follow up with the clinic at the first available appointment, preferably this week.
Thank you for choosing [facility].
Interventions
Interventions:
*Risk Screen - Suicide Last Done: 08/14/24 18:45
*General Assessment Last Done: 08/14/24 22:10
*Neglect/Abuse Screening Last Done: 08/14/24 18:45
*ED- Fall Risk Assessment Last Done: 08/14/24 22:10
*ED COVID-19 Vaccine History Last Done: 08/14/24 22:10
Discharge Date and Time
Print Language: SWEDISH
[2024-08-14 22:09] VITALS: BP 135/81
[2024-08-14] MEDS: ATIVAN 1 MG PO (22:17)
[2024-08-14 22:18] VITALS: BMI 22.6
[2024-08-15 01:13] VITALS: BP 131/82
== END 2024-08-15 01:41 | disposition home or self-care (01) ==
LOC: EMR 18:41
PROVIDERS: Emergency Medicine; EMERGENCY PHYSICIAN Student in an Organized Health Care Education/Training Program
DX: R51.9 Headache, unspecified (principal); R42 Dizziness and giddiness; L65.9 Nonscarring hair loss, unspecified; H53.8 Other visual disturbances; R21 Rash and other nonspecific skin eruption; G47.00 Insomnia, unspecified
CPT/HCPCS: 99284; 70450; 80053; 81003; 84484; 85025; 87502; 87811; 93005

== ENCOUNTER 2024-09-06 14:44 | Inpatient (IN) | payer OTHER, SELFPAY ==
[2024-09-05 20:05] VITALS: BP 143/92
[2024-09-05 20:34] LABS: % Basophils 0.4 % (0-2); % Immature Granulocytes 0.2 % (0-0.5); % Lymphocytes 6.7 % (20.5-51.1); % Monocytes 4.7 % (1.7-9.3); Absolute Lymphocytes 0.8 10^3/uL (1.2-3.4); Absolute Monocytes 0.5 10^3/uL (0.1-0.6); Hematocrit 39.8 % (39.0-52.0); Hemoglobin 14.4 g/dL (13.0-18.0); Mean Corp Hgb Conc. 36.2 g/dL (33.0-37.0); Mean Corpuscular Hgb 31.9 pg (27.0-31.0); Mean Corpuscular Volume 88.2 fL (80.0-94.0); Mean Platelet Volume 8.8 fL (7.4-10.4); Nucleated Red Blood Cells % 0 % (-); Platelet Count 268 10^3/uL (130-400); Red Blood Cell Count 4.51 10^6/uL (4.70-6.10); Red Cell Dist. Width 11.4 % (11.5-14.5); White Blood Cell Count 11.3 10^3/uL (4.8-10.8)
[2024-09-05 20:45] LABS: AST (SGOT) 44 U/L (17-59); Albumin 5.7 g/dl (3.5-5.0); Alkaline Phosphatase 84 U/L (38-126); Blood Urea Nitrogen 9 mg/dl (9-20); Calcium 9.6 mg/dl (8.4-10.2); Carbon Dioxide 25 mmol/L (22-30); Chloride 95 mmol/L (98-107); Glucose 154 mg/dl (70-99); Sodium 138 mmol/L (135-145); Total Bilirubin 1.2 mg/dl (0.2-1.3); Total Protein 9.1 g/dl (6.3-8.2); eGFR > 60.00
[2024-09-05 20:53] LABS: Troponin I < 0.012 ng/ml
[2024-09-05 21:05] LABS: ALT (SGPT) 50 U/L (0-50)
[2024-09-05 23:27] VITALS: BP 141/78
[2024-09-06] VITALS (11 sets, daily range): BP systolic 112–146; BP diastolic 72–88; BMI 23.3
[2024-09-06] MEDS: PROTONIX IV 40 MG IV ×3 (00:45→20:22)
[2024-09-06] MEDS: NSS 1000 IV (00:45)
[2024-09-06] MEDS: ATIVAN 2 MG IV (00:46)
--- NOTE | 2024-09-06 00:54 | ED.GENMED ---
History of Present Illness
General
Chief Complaint: Hallucinations
Source: patient and other (Language line talent consultant on iPad)
Exam Limitations: none
Time Seen by Provider: 09/05/24 23:49
Nursing documentation reviewed up to this point in time: agreed with
History of Present Illness
History of Present Illness:
The patient is a Bengali-speaking 29-year-old man who reports drinking alcohol every day for years. Patient reports that over the last 3 to 4 days, he has been experiencing upper abdominal pain rating into his chest. He reports he has been unable
to drink alcohol for about 2 days due to the discomfort. Patient reports multiple episodes of nausea and vomiting. He denies fever. He denies diarrhea. He denies sick contacts. Patient reports that he is unable to sleep at night unless he
drinks alcohol. Patient says that he typically drinks 10-12 beers per day as well as 4 drinks of liquor
Past History
Past History
ED Past Medical History: None
ED Past Surgical History: None
Social History
Tobacco: Other
Alcohol: Daily
Review of Systems
Review of Systems
Allergies reviewed?: Yes
All Other Systems: ROS reviewed and negative except as documented in HPI and ROS
Constitutional: Reports no symptoms
EENT: Reports no symptoms
Respiratory: Reports no symptoms
Cardiac: Reports chest pain
ABD/GI: Reports abdominal pain, nausea and vomiting
: Reports no symptoms
Musculoskeletal: Reports no symptoms
Skin: Reports no symptoms
Neurological: Reports no symptoms
Endocrine: Reports no symptoms
Hematologic/Lymphatic: Reports no symptoms
Psychiatric: Reports no symptoms
Phy Exam
Physical Exam
Physical Exam:
Physical Exam
General: Patient appears anxious, tremorous
Neck: supple. no meningeal signs. normal psoterior pharynx
Heart: Tachycardic
Lungs: no acute respiratory distress. clear bilaterally
Abdomen: normal bowel sounds. Mild epigastric tenderness. No rebound or guarding. No pulsatile mass
Neuro: alert and oriented. no focal neurological deficits
Skin: no rash
Psychiatric: well kept. interactive and cooperative
Extremities: no edema. no calf tenderness. negative homans. good distal pulses
Course
Orders/Labs/Results
Orders:
Orders
09/05/24 20:12
EKG [Electrocardiogram (*1)] Urgent
Reason for Study: Chest Pain
EKG- Treatment ONCE
09/05/24 20:22
Complete Blood Count/With Diff Urgent
Comprehensive Metabolic Panel Urgent
Lipase Urgent
Comment: ADDED
Troponin I Urgent
09/06/24 00:34
Lorazepam [Ativan] 2 mg IV NOW STA
09/06/24 00:35
0.9% Sodium Chloride 1000 ml [Nss] 1,000 ml IV BOLUS
Pantoprazole [Protonix IV] 40 mg IV NOW STA
09/06/24 00:54
Add On- LAB Urgent
Tests Added?: lipase
Abnormal Lab Results
09/05/24
20:22
WBC 11.3 H 10^3/uL
(4.8-10.8)
RBC 4.51 L 10^6/uL
(4.70-6.10)
MCH 31.9 H pg
(27.0-31.0)
RDW 11.4 L %
(11.5-14.5)
Absolute Neuts (auto) 10.0 H 10^3/uL
(1.4-6.5)
Absolute Lymphs (auto) 0.8 L 10^3/uL
(1.2-3.4)
Neutrophils % 88.0 H %
(42.2-75.2)
Lymphocytes % 6.7 L %
(20.5-51.1)
Chloride 95 L mmol/L
(98-107)
Creatinine 0.5 L mg/dL
(0.7-1.3)
Glucose 154 H mg/dl
(70-99)
Total Protein 9.1 H g/dl
(6.3-8.2)
Albumin 5.7 H g/dl
(3.5-5.0)
09/05/24 20:22
09/05/24 20:22
Vital Signs
Initial and Last Documented VS:
Initial Vital Signs
Temp Pulse Resp BP Pulse Ox
99.8 F 110 18 143/92 99
09/05/24 20:05 09/05/24 20:05 09/05/24 20:05 09/05/24 20:05 09/05/24 20:05
Last Documented Vital Signs
Temp Pulse Resp BP Pulse Ox
99.8 F 83 17 114/81 96
09/05/24 20:05 09/06/24 01:45 09/06/24 01:45 09/06/24 01:00 09/06/24 01:45
MDM/Problems Addressed
Differential Diagnosis Includes:
Alcoholic ketoacidosis, acute gastritis, alcohol withdrawal
MDM/Problems Addressed:
Patient presents with acute chest pain, abdominal pain and tremor
Chronic conditions affecting care:
Daily alcohol use/chronic alcoholism
*Pulse Oximetry
Patient hypoxic: no
*EKG
Interpreted by ED Provider?: Yes
Interpretation: abnormal
Comparison EKG: no comparison EKG present
Rate: tachycardiac
Rhythm: sinus
[place]: normal axis
QRS Pattern: normal QRS
Ischemia: no ischemia
*Supply Person Interpretation
Rate: tachycardiac
Interpretation: abnormal
Rhythm: sinus
*Critical Care Note
Total Time (30-74mins, 75-104mins- exclusive of procedures): Not Applicable
Data Reviewed
Source: patient
Patient Management
Discussion with other providers: Hospitalist
ED Attending Note
-
Portions of this chart may have been created with voice recognition software.� Occasional wrong word or��sound alike� substitutions may have occurred due to the inherent limitations of voice recognition software.
Discharge Plan
Departure
Patient Disposition: Admit
Date of Disposition: 09/06/24
Time of Disposition: 02:11
Presentation/result/management discussed w/ accepting MD/DO: Hospitalist
Patient with high blood pressure during this ER visit?: No
Condition: Fair
Discharge Problem:
Acute alcohol withdrawal, Acute nausea with nonbilious vomiting
Prescriptions:
No Action
omeprazole 20 mg tablet,delayed release (DR/EC)
40 mg PO DAILY 30 Days Qty: 60 0RF
melatonin 5 mg capsule
5 mg PO HS 30 Days Qty: 30 0RF
Interventions
Interventions:
*Risk Screen - Suicide Last Done: 09/05/24 20:08
*General Assessment Last Done: 09/05/24 20:08
*Neglect/Abuse Screening Last Done: 09/05/24 20:08
*ED COVID-19 Vaccine History Last Done: 09/05/24 20:08
*Nursing Disposition Last Done: 09/05/24 21:06
ED- Neurological Assessment Last Done: 09/05/24 22:00
ED-Psychological Assessment Last Done: 09/05/24 22:00
Discharge Date and Time
Print Language: FINNISH
[2024-09-06 01:33] LABS: Lipase 93 U/L (23-300)
[2024-09-06] MEDS: MULTIVITAMIN 1011 MG IV (03:15)
[2024-09-06] MEDS: MULTIVITAMIN 1011 ML IV (03:15)
--- NOTE | 2024-09-06 04:27 | HPS.HSE ---
Family Physician
-
Family Physician: NOT KNOW UNKNOWN - PT DOES
Chief Complaint
-
Abdominal pain nausea vomiting
History of Present Illness
This is a 29-year-old male (Turkmen-speaking only) with past medical history of alcohol dependence presenting to the emergency department with 2 days of abdominal pain nausea vomiting.
He was seen in the emergency department 1 day ago with abdominal pain nausea vomiting and tremors. He was discharged home. Patient continued to have nausea vomiting. He reports nonbloody and nonbilious emesis. Denies any melena. Reports the
abdominal pain is epigastric but radiates into his chest and yesterday with a burning sensation. He is lost his appetite. He denies NSAIDs.
Patient history typically drinks about 10 to 12 cans of beer with 4 drinks of liquor daily. States that he started drinking to help him sleep. He has required alcohol to sleep over the last 1 year. Due to his abdominal pain he is unable to drink
the alcohol and therefore is unable to sleep.
Patient has never undergone withdrawal seizures but reports tremulousness and insomnia when he is not drinking alcohol. Reports that he stopped drinking for a week in the past without withdrawal seizures. He says he is had auditory hallucinations
in the past but unclear if it is associated with alcohol cessation.
He denies any recreational drug use.
The emergency department he was afebrile, blood pressure was 135/80 with a pulse of 79. ECG initially showed a sinus tachycardia at 106. Electrolytes were all normal. CBC was unremarkable. LFTs were normal. Lipase was negative.
Medical History
Past Medical History
Past Medical History: Reports None
Past Surgical History: Reports None
Social History
Tobacco: Non-smoker
Alcohol: Binge drinker (Reported drinking some kind of ETOH for last 3 - 4days )
Family History
Family History: Not pertinent
Allergies / Home Medications
Allergies reflects when Allergies were last updated in [email or web address].
Home Medications with original date entered in [email or web address]
Allergy/Medication List:
Allergies
Allergy/AdvReac Type Severity Reaction Status Date / Time
No Known Allergies Allergy Unverified 04/17/24 14:31
If medication reconciliation has not been performed, why?: Medication List N/A
Review of Systems
-
History Source: Patient
Constitutional: Reports No Symptoms
EENT: Reports No Symptoms
Respiratory: Reports No Symptoms
Cardiac: Reports No Symptoms
Abdomen/GI: Reports Abdominal Pain, Nausea and Vomiting
: Reports No Symptoms
Musculoskeletal: Reports No Symptoms
Skin: Reports No Symptoms
Neurological: Reports No Symptoms
Endocrine: Reports No Symptoms
Hematologic/Lymphatic: Reports No Symptoms
Psych: Reports No Symptoms
Physical Exam
Vital Signs
Vital Signs
Temp Pulse Resp BP Pulse Ox
99.8 F 79 17 136/81 99
09/05/24 20:05 09/06/24 03:00 09/06/24 03:00 09/06/24 03:00 09/06/24 03:00
Physical Exam
General: Well Developed, Well Nourished and No Apparent Distress
HEENT: NormoCephalic, Anicteric and Moist mucous membranes
Respiratory: Clear
Cardiac: S1/S2 and Regular Rhythm
Breast: Deferred by me
GI: Soft, Non Distended and Normal Bowel Sounds
Rectal: Deferred by Provider
Genito-urinary: Clear Urine
Musculoskeletal: No Clubbing, No Cyanosis and No Edema
Skin: Warm
Neuro: AO x 3 and Nonfocal/grossly intact
Hematologic/Lymphatic: No Lymphadenopathy
Psych: Calm and Anxious
Laboratory Results
-
09/05/24 20:22
09/05/24 20:22
Laboratory Results
Total Bilirubin 1.2 mg/dl (0.2-1.3) 09/05/24 20:22
AST 44 U/L (17-59) 09/05/24 20:22
ALT 50 U/L (0-50) 09/05/24 20:22
Alkaline Phosphatase 84 U/L (38-126) 09/05/24 20:22
Troponin I < 0.012 ng/ml 09/05/24 20:22
Lipase 93 U/L (23-300) 09/05/24 20:22
Data Reviewed
-
Medical Tests (Nuc Med, Echo, EKG etc): Image Personally Visualized and interpreted
Lab Data: Labs Reviewed by me
Old Records: Reviewed
Impression/Plan
-
IMPRESSION:
29-year-old with significant alcohol dependence who presents to the emergency department with nausea vomiting and abdominal pain. Picture is consistent with gastritis secondary to alcohol use. No evidence of acute GI bleed. Patient also has
tremulousness and has mild symptoms of alcohol withdrawal. His last use he reports was Friday morning approximately 36 hours ago.
PLAN:
Gastritis - ETOH gastritis
- admit to med/surg obs
- ppi iv bid
- maalox prn
- antiemetics and pain control
- clear liquid diet, adat
- iv fluids
ETOH withdrawal. 36 hours since last ETOH. PAWS = 2, average risk
- low risk withdrawal protocol without phenobarb
- after 2 of iv ativan, patient is not tachycardic. Mildly tremulous CIWA < 6
- gave serax adjunct
- does not seek rehab at this time,- uses etoh for sleep, recommend rehab and transition to other sleeping agent after etoh cessation
DVT PPX
- lovenox sq
Code status - Full Code
[2024-09-06] MEDS: D5/0.9% SODIUM CHLORIDE 1000 IV (05:58)
[2024-09-06] MEDS: SERAX 15 MG PO (05:58)
--- NOTE | 2024-09-06 06:17 | PTCARENOTE ---
Pt transferred to 4. pt walked from stretcher to bed. Pt swedish speaking. AAOx3 pt is calm and no withdraw s/s noted upon admission to the floor. Pt oriented to room, safety meausres in place call briceño within reach.
--- NOTE | 2024-09-06 06:47 | W.PN.HOSP.TC ---
Today's Communication/Plan
-
see a/p
Assessment / Plan
Assessment / Plan
Physical Exam
General: No acute distress, appears comfortable at this time.
HEENT: NormoCephalic, Anicteric, and Moist mucous membranes
Respiratory: Clear
Cardiac: S1/S2 and Regular Rhythm
GI: Soft, Non Distended, mild tenderness, bowel sounds present
Musculoskeletal: No Clubbing, No Cyanosis and No Edema
Skin: Warm
Neuro: AO x 3 Conversant Coherent, tremors noted on outstretched hands
Psych: Calm and Anxious
29M Welsh speaking, hx ETOH abuse, here for ETOH gastritis and withdrawal.
Gastritis - ETOH gastritis
- med/surg admit
- ppi iv bid
- maalox prn
- antiemetics and pain control
- clear liquid diet tolerated, advanced to Low residue per patient request
- iv fluids completed
ETOH withdrawal
- withdrawal symptoms significantly improved with ativan given in ED
- low risk withdrawal protocol without phenobarb
- does not seek rehab at this time, uses ETOH for sleep, patient would benefit from Rehab however uninsured, follows with [facility], Melatonin HS ordered to assist with sleep, ativan prn sleep also ordered.
Hypomagnesemia
-monitor and replete as necessary
DVT PPX
- lovenox sq
Code status - Full Code
I spent a total of 40 minutes with the patient or on the floor. More than 50% of this time involved counseling and coordination of care.
Anticipated Discharge: 24 - 48 hours
Subjective/Interval History
-
Date of Service: September 06, 2024
No acute distress sitting up comfortably in bed. Reports headache, abd pain, back pain, some nausea though tolerating clear liquid diet, requesting advancement in diet. Denies vomiting. Interviewed with Welsh line adjusto writer operator service.
Objective Data
-
Labs:
Laboratory Results
09/05/24 09/06/24
20:22 06:00
WBC 11.3 H
Hgb 14.4
Hct 39.8
Plt Count 268
PT Pending
INR Pending
APTT Pending
Sodium 138
Potassium 4.0
Chloride 95 L
Carbon Dioxide 25
BUN 9
Creatinine 0.5 L
Glucose 154 H
Calcium 9.6
Total Bilirubin 1.2
AST 44
ALT 50
Alkaline Phosphatase 84
Vital Signs:
Vital Signs
Temp Pulse Resp BP Pulse Ox
99.5 F 87 14 146/80 99
09/06/24 05:48 09/06/24 05:48 09/06/24 05:48 09/06/24 05:48 09/06/24 05:48
[2024-09-06 08:31] LABS: PT 14.5 Sec (11.4-14.6)
[2024-09-06 09:04] LABS: Magnesium 1.5 mg/dl (1.6-2.3); Phosphorus 2.7 mg/dl (2.5-4.5)
[2024-09-06 09:06] LABS: Alcohol None Detected
[2024-09-06] MEDS: THIAMINE INJECTION 200 MG IV ×2 (10:02→20:21)
[2024-09-06] MEDS: NSS (PRESERVATIVE FREE) 10 ML IV ×2 (10:02→20:22)
[2024-09-06] MEDS: FOLVITE 1 MG PO (10:02)
[2024-09-06] MEDS: MAGNESIUM SULFATE 100 IV (10:14)
[2024-09-06 10:57] LABS: Urine Albumin Negative (Neg - Trace); Urine Bilirubin Negative (Negative); Urine Character Clear (Clear); Urine Color Yellow; Urine Glucose Negative (Negative); Urine Ketone Negative (Negative); Urine Leukocyte Negative (Negative); Urine Nitrite Negative (Negative); Urine Occult Blood Negative (Negative); Urine Urobilinogen Negative (Neg - 1+)
[2024-09-06 11:43] LABS: Amphetamines Negative (Negative); Barbiturates Negative (Negative); Benzodiazepines Positive (Negative); Buprenorphine Negative (Negative); Cocaine Negative (Negative); Marijuana Negative (Negative); Methadone Negative (Negative); Methamphetamines Negative (Negative); Opiates Negative (Negative); Phencyclidine Negative (Negative); Tricyclic Antidepressants Negative (Negative)
[2024-09-06 12:05] LABS: Fentanyl, Urine Negative (Negative)
--- NOTE | 2024-09-06 16:01 | CM ---
Patient seen bedside.
IA completed with help of business librarian via portable IPAD, reference# [id number]
Patient juan c with his brother in 2 story home.
Independent prior to admission without assistive devices.
Patient dos not drive.
patient does not work.
patient does not have insurance, [facility] (P).
patient does not have a PCP.
Patient was refereed to and has information from last admission for [facility].
Patient was referred to [facility] last admission, but does not drive so cannot get to meetings.
[facility] contacted and will re-see patient today or tomorrow morning.
Per MD, probable d/c tomorrow.
Patient has transport home.
Plan: home with outpatient resources.
[2024-09-06] MEDS: LOVENOX 40 MG SC (20:22)
[2024-09-06] MEDS: MELATONIN 5 MG PO (21:42)
[2024-09-07 02:55] VITALS: BP 110/68
[2024-09-07 07:28] VITALS: BP 124/86
[2024-09-07] MEDS: FOLVITE 1 MG PO (08:01)
[2024-09-07] MEDS: PROTONIX IV 40 MG IV ×2 (08:01→20:43)
[2024-09-07] MEDS: THIAMINE INJECTION 200 MG IV ×2 (08:02→20:43)
[2024-09-07] MEDS: NSS (PRESERVATIVE FREE) 10 ML IV ×2 (08:02→20:43)
--- NOTE | 2024-09-07 08:12 | W.PN.HOSP.TC ---
Today's Communication/Plan
-
Cont MSAS protocol
start scheduled Serax
Ok to dc Telemetry
Assessment / Plan
Assessment / Plan
Physical Exam
General: No acute distress, appears relatively comfortable at this time.
HEENT: NormoCephalic, Anicteric, and Moist mucous membranes
Respiratory: Clear
Cardiac: S1/S2 and Regular Rate Rhythm
GI: Soft, Non Distended, mild tenderness, bowel sounds present
Musculoskeletal: No Clubbing, No Cyanosis and No Edema
Skin: Warm
Neuro: AO x 3 Conversant Coherent, tremors noted on outstretched hands
Psych: Calm
29M [place] speaking, hx ETOH abuse, here for ETOH gastritis and withdrawal.
Gastritis - ETOH gastritis
- ppi iv bid
- maalox prn
- antiemetics and pain control
- clear liquid diet tolerated, advanced to Low residue per patient request
- iv fluids completed
ETOH withdrawal
- does not seek rehab at this time, uses ETOH for sleep, patient would benefit from Rehab however uninsured, follows with [facility], Melatonin HS ordered to assist with sleep, ativan prn sleep also ordered.
-cont MSAS protocol
-reporting Formication
-Started scheduled Serax for ETOH withdrawal symptoms
Hypokalemia
Hypomagnesemia
-monitor and replete as necessary
DVT PPX
- lovenox sq
Code status - Full Code
I spent a total of 40 minutes with the patient or on the floor. More than 50% of this time involved counseling and coordination of care.
Anticipated Discharge: Within 24 hours
Subjective/Interval History
-
Date of Service: September 07, 2024
Seen and examined at bedside. Appeared comfortable sitting up in bed. Interviewed with [place] line neurodiagnostic technician service, tolerating diet. Reported formication, sweating, tremors noted on outstretched hands.
Objective Data
-
Labs:
Laboratory Results
09/07/24
06:49
WBC Pending
Hgb Pending
Hct Pending
Plt Count Pending
Sodium Pending
Potassium Pending
Chloride Pending
Carbon Dioxide Pending
BUN Pending
Creatinine Pending
Glucose Pending
Calcium Pending
Vital Signs:
Vital Signs
Temp Pulse Resp BP Pulse Ox
98.1 F 74 18 124/86 100
09/07/24 07:28 09/07/24 07:28 09/07/24 07:28 09/07/24 07:28 09/07/24 07:28
I&O
09/06/24 09/07/24 09/08/24
06:59 06:59 06:59
Intake Total 3120 / 3120
Balance 3120 / 3120
[2024-09-07 08:14] LABS: Blood Urea Nitrogen 7 mg/dl (9-20); Calcium 9.3 mg/dl (8.4-10.2); Carbon Dioxide 26 mmol/L (22-30); Chloride 102 mmol/L (98-107); Estimated Creatinine Clearance > 125 ml/min; Glucose 88 mg/dl (70-99); Magnesium 2.2 mg/dl (1.6-2.3); Phosphorus 3.4 mg/dl (2.5-4.5); Potassium 3.2 mmol/L (3.5-5.1); Sodium 139 mmol/L (135-145); eGFR > 60.00
[2024-09-07 08:19] LABS: Hematocrit 38.6 % (39.0-52.0); Mean Corp Hgb Conc. 36.3 g/dL (33.0-37.0); Mean Corpuscular Hgb 31.7 pg (27.0-31.0); Mean Corpuscular Volume 87.3 fL (80.0-94.0); Mean Platelet Volume 9.5 fL (7.4-10.4); Platelet Count 181 10^3/uL (130-400); Red Blood Cell Count 4.42 10^6/uL (4.70-6.10); Red Cell Dist. Width 11.2 % (11.5-14.5); White Blood Cell Count 4.5 10^3/uL (4.8-10.8)
[2024-09-07 11:30] VITALS: BP 120/73
[2024-09-07 14:34] VITALS: BP 156/77
[2024-09-07] MEDS: SERAX 15 MG PO ×3 (15:36→23:16)
--- NOTE | 2024-09-07 15:38 | CM ---
manager financial systems reached out to [facility] and per [facility] patient has been provided with outpatient treatment options, AA meetings and Turkmen speaking resources.
Plan; Home and follow up with outpatient treatment options.
[2024-09-07] MEDS: LOVENOX 40 MG SC (17:04)
[2024-09-07 19:39] VITALS: BP 130/76
[2024-09-07] MEDS: MELATONIN 5 MG PO (20:55)
[2024-09-08] MEDS: SERAX 15 MG PO ×4 (05:41→23:22)
[2024-09-08 06:48] LABS: Hematocrit 38.3 % (39.0-52.0); Hemoglobin 13.9 g/dL (13.0-18.0); Mean Corp Hgb Conc. 36.3 g/dL (33.0-37.0); Mean Corpuscular Volume 88.2 fL (80.0-94.0); Mean Platelet Volume 9.8 fL (7.4-10.4); Platelet Count 162 10^3/uL (130-400); Red Blood Cell Count 4.34 10^6/uL (4.70-6.10); Red Cell Dist. Width 11.2 % (11.5-14.5); White Blood Cell Count 5.6 10^3/uL (4.8-10.8)
[2024-09-08 07:10] LABS: Blood Urea Nitrogen 9 mg/dl (9-20); Calcium 9.3 mg/dl (8.4-10.2); Carbon Dioxide 27 mmol/L (22-30); Chloride 101 mmol/L (98-107); Estimated Creatinine Clearance 119 ml/min; Glucose 95 mg/dl (70-99); Magnesium 2.2 mg/dl (1.6-2.3); Phosphorus 3.8 mg/dl (2.5-4.5); Potassium 3.2 mmol/L (3.5-5.1); Sodium 140 mmol/L (135-145); eGFR > 60.00
[2024-09-08] MEDS: NSS (PRESERVATIVE FREE) 10 ML IV ×2 (07:23→19:46)
[2024-09-08] MEDS: FOLVITE 1 MG PO (07:23)
[2024-09-08] MEDS: THIAMINE INJECTION 200 MG IV ×2 (07:23→19:47)
[2024-09-08] MEDS: PROTONIX IV 40 MG IV ×2 (07:24→19:46)
--- NOTE | 2024-09-08 07:29 | W.PN.HOSP.TC ---
Today's Communication/Plan
-
cont serax taper
Assessment / Plan
Assessment / Plan
Physical Exam
General: No acute distress, appears relatively comfortable at this time.
HEENT: NormoCephalic, Anicteric, and Moist mucous membranes
Respiratory: Clear
Cardiac: S1/S2 and Regular Rate Rhythm
GI: Soft, Non Distended, mild tenderness, bowel sounds present
Musculoskeletal: No Clubbing, No Cyanosis and No Edema
Skin: Warm
Neuro: AO x 3 Conversant Coherent, tremors noted on outstretched hands
Psych: Calm
29M Israeli speaking, hx ETOH abuse, here for ETOH gastritis and withdrawal.
Gastritis - ETOH gastritis
- ppi iv bid
- maalox prn
- antiemetics and pain control
- Tolerating Low residue.
- iv fluids completed
ETOH withdrawal
- does not seek rehab at this time, uses ETOH for sleep, patient would benefit from Rehab however uninsured, follows with [facility], Melatonin HS ordered to assist with sleep, ativan prn sleep also ordered.
-cont MSAS protocol
-Started scheduled Serax for ETOH withdrawal symptoms, symptoms since improved, formication resolved, hand tremors remain present
Hypokalemia
Hypomagnesemia
-monitor and replete as necessary
DVT PPX
- lovenox sq
Code status - Full Code
I spent a total of 40 minutes with the patient or on the floor. More than 50% of this time involved counseling and coordination of care.
Anticipated Discharge: Within 24 hours
Subjective/Interval History
-
Date of Service: September 08, 2024
No acute distress sitting up comfortably in bed. Reports feeling better. Formication resolved. Hand tremors remain present. Tolerating diet. Interviewed with Israeli Line career coach providing translation.
Objective Data
-
Labs:
Laboratory Results
09/08/24
05:59
WBC 5.6
Hgb 13.9
Hct 38.3 L
Plt Count 162
Sodium 140
Potassium 3.2 L
Chloride 101
Carbon Dioxide 27
BUN 9
Creatinine 0.7
Glucose 95
Calcium 9.3
Vital Signs:
Vital Signs
Temp Pulse Resp BP Pulse Ox
98.5 F 68 20 130/76 98
09/07/24 19:39 09/07/24 19:39 09/07/24 19:39 09/07/24 19:39 09/07/24 19:39
I&O
09/07/24 09/08/24 09/09/24
06:59 06:59 06:59
Intake Total 3120 / 3120 1200 / 1200
Balance 3120 / 3120 1200 / 1200
[2024-09-08 08:00] VITALS: BP 125/73
--- NOTE | 2024-09-08 13:36 | CM ---
Home when stable, out patient options to follow up with were provided by [facility], brochure for [facility] also provided to patient.
Plan; Home when stable.
[2024-09-08] MEDS: KCL 40 MEQ PO (13:43)
[2024-09-08 16:00] VITALS: BP 140/85
[2024-09-08] MEDS: LOVENOX 40 MG SC (17:16)
[2024-09-08 19:45] VITALS: BP 123/73
[2024-09-08] MEDS: KCL 20 MEQ PO (19:47)
[2024-09-08] MEDS: MELATONIN 5 MG PO (23:22)
[2024-09-08 23:28] VITALS: BP 119/78
[2024-09-09 03:25] VITALS: BP 120/70
[2024-09-09] MEDS: SERAX 15 MG PO ×2 (06:03→12:39)
--- NOTE | 2024-09-09 07:16 | W.PN.HOSP.TC ---
Today's Communication/Plan
-
discharge
Assessment / Plan
Assessment / Plan
Physical Exam
General: No acute distress, appears relatively comfortable at this time.
HEENT: NormoCephalic, Anicteric, and Moist mucous membranes
Respiratory: Clear
Cardiac: S1/S2 and Regular Rate Rhythm
GI: Soft, Non Distended, nontender, bowel sounds present
Musculoskeletal: No Clubbing, No Cyanosis and No Edema
Skin: Warm
Neuro: AO x 3 Conversant Coherent, tremors resolved
Psych: Calm
29M Mosotho speaking, hx ETOH abuse, here for ETOH gastritis and withdrawal.
Gastritis - ETOH gastritis
- ppi iv bid
- maalox prn
- antiemetics and pain control
- Tolerating Diet
- iv fluids completed
ETOH withdrawal
- does not seek rehab at this time, uses ETOH for sleep, patient would benefit from Rehab however uninsured, follows with [facility], Melatonin HS ordered to assist with sleep, ativan prn sleep also ordered.
-ETOH withdrawal symptoms including formication and hand tremors resolved
-MSAS protocol completed and Serax taper completed
-tolerating diet
-Medically stable for discharge home with outpatient follow up recommendations.
Hypokalemia
Hypomagnesemia
-monitor and replete as necessary
DVT PPX
- lovenox sq
Code status - Full Code
Medically stable for discharge home with outpatient follow up recommendations
Total Time Preparing Discharge ___40____ minutes including examination of the patient, summary of the hospital stay, instructions for continuing care to all relevant caregivers; and preparation of discharge records, prescriptions, and referral
forms if necessary.
Anticipated Discharge: Today
Subjective/Interval History
-
Date of Service: September 09, 2024
No acute distress, sitting up comfortably in chair. Reports overall feeling well. Shaking resolved. Tolerating diet. Denies new acute issues. Eager to go home.
Objective Data
-
Labs:
Laboratory Results
09/09/24
06:00
WBC Pending
Hgb Pending
Hct Pending
Plt Count Pending
Sodium Pending
Potassium Pending
Chloride Pending
Carbon Dioxide Pending
BUN Pending
Creatinine Pending
Glucose Pending
Calcium Pending
Vital Signs:
Vital Signs
Temp Pulse Resp BP Pulse Ox
97.8 F 64 16 120/70 99
09/09/24 03:25 09/09/24 03:25 09/09/24 03:25 09/09/24 03:25 09/09/24 03:25
I&O
09/08/24 09/09/24 09/10/24
06:59 06:59 06:59
Intake Total 1200 / 1200 1300 / 1300
Balance 1200 / 1200 1300 / 1300
[2024-09-09 07:44] VITALS: BP 111/68
[2024-09-09 08:03] LABS: Hematocrit 39.2 % (39.0-52.0); Hemoglobin 14.3 g/dL (13.0-18.0); Mean Corp Hgb Conc. 36.5 g/dL (33.0-37.0); Mean Corpuscular Hgb 31.8 pg (27.0-31.0); Mean Corpuscular Volume 87.1 fL (80.0-94.0); Mean Platelet Volume 9.8 fL (7.4-10.4); Platelet Count 165 10^3/uL (130-400); Red Cell Dist. Width 11.4 % (11.5-14.5)
[2024-09-09] MEDS: VITAMIN B1 100 MG PO (08:14)
[2024-09-09] MEDS: FOLVITE 1 MG PO (08:14)
[2024-09-09] MEDS: NSS (PRESERVATIVE FREE) 10 ML IV (08:14)
[2024-09-09] MEDS: KCL 20 MEQ PO (08:14)
[2024-09-09] MEDS: PROTONIX IV 40 MG IV (08:15)
[2024-09-09 08:32] LABS: Blood Urea Nitrogen 10 mg/dl (9-20); Calcium 9.7 mg/dl (8.4-10.2); Carbon Dioxide 24 mmol/L (22-30); Chloride 104 mmol/L (98-107); Estimated Creatinine Clearance > 125 ml/min; Glucose 94 mg/dl (70-99); Magnesium 2.1 mg/dl (1.6-2.3); Phosphorus 3.6 mg/dl (2.5-4.5); Potassium 3.8 mmol/L (3.5-5.1); Sodium 138 mmol/L (135-145); eGFR > 60.00
[2024-09-09 11:47] VITALS: BP 116/69
--- NOTE | 2024-09-09 11:53 | CM ---
Chart reviewed patient is for discharge to home when stable, has information from [facility] on outpatient programs and [facility] brochure in Serbian.
Plan; Home when stable.
[2024-09-09 15:24] VITALS: BP 117/72
== END 2024-09-09 16:32 | disposition home or self-care (01) | DRG 897 ==
LOC: 4 WEST ACU 14:44
PROVIDERS: Student in an Organized Health Care Education/Training Program; ADMITTING PHYSICIAN Internal Medicine; ATTENDING PHYSICIAN Internal Medicine; EMERGENCY PHYSICIAN Emergency Medicine
DX: F10.239 Alcohol dependence with withdrawal, unspecified (principal); K29.20 Alcoholic gastritis without bleeding; E83.42 Hypomagnesemia; E87.6 Hypokalemia
CPT/HCPCS: 80048; 80053; 80306; 80307; 81003; 82077; 83690; 83735; 84100; 84484; 85025; 85027; 85610; 85730; 93005; 96361; 96365; 96375; 99285

== ENCOUNTER 2024-10-03 16:17 | Emergency (ER) | payer OTHER, SELFPAY ==
[2024-10-03 16:27] VITALS: BP 147/95
[2024-10-03 16:58] LABS: % Basophils 0.9 % (0-2); % Eosinophils 0.4 % (0-6); % Immature Granulocytes 0.3 % (0-0.5); % Lymphocytes 14.7 % (20.5-51.1); % Monocytes 4.8 % (1.7-9.3); % Neutrophils 78.9 % (42.2-75.2); Absolute Basophils 0.1 10^3/uL (0-0.2); Absolute Eosinophils 0.1 10^3/uL (0-0.7); Absolute Lymphocytes 1.6 10^3/uL (1.2-3.4); Absolute Monocytes 0.5 10^3/uL (0.1-0.6); Absolute Neutrophils 8.8 10^3/uL (1.4-6.5); Hematocrit 40.4 % (39.0-52.0); Hemoglobin 14.4 g/dL (13.0-18.0); Mean Corp Hgb Conc. 35.6 g/dL (33.0-37.0); Mean Corpuscular Hgb 31.1 pg (27.0-31.0); Mean Corpuscular Volume 87.3 fL (80.0-94.0); Nucleated Red Blood Cells % 0 % (-); Platelet Count 318 10^3/uL (130-400); Red Blood Cell Count 4.63 10^6/uL (4.70-6.10); Red Cell Dist. Width 11.4 % (11.5-14.5); White Blood Cell Count 11.1 10^3/uL (4.8-10.8)
[2024-10-03 17:17] LABS: ALT (SGPT) 23 U/L (0-50); AST (SGOT) 29 U/L (17-59); Alkaline Phosphatase 94 U/L (38-126); Blood Urea Nitrogen 10 mg/dl (9-20); Calcium 9.2 mg/dl (8.4-10.2); Carbon Dioxide 27 mmol/L (22-30); Chloride 99 mmol/L (98-107); Glucose 149 mg/dl (70-99); Potassium 4.2 mmol/L (3.5-5.1); Sodium 137 mmol/L (135-145); Total Protein 8.2 g/dl (6.3-8.2); eGFR > 60.00
[2024-10-03 17:29] LABS: Troponin I 0.026 ng/ml
[2024-10-03 17:33] LABS: COVID-19 Antigen Negative (Negative)
[2024-10-03 18:06] VITALS: BMI 23.4
[2024-10-03 18:08] VITALS: BP 132/78
[2024-10-03 19:00] VITALS: BP 132/81
[2024-10-03] MEDS: NSS 1000 IV (20:01)
[2024-10-03] MEDS: TORADOL 15 MG IV (20:02)
[2024-10-03] MEDS: REGLAN 10 MG IV (20:03)
[2024-10-03] MEDS: BENADRYL 25 MG IV (20:04)
[2024-10-03 20:47] LABS: Troponin I < 0.012 ng/ml
--- NOTE | 2024-10-03 21:52 | ED.GENMED ---
History of Present Illness
General
Chief Complaint: Chest Pain
Source: patient
Exam Limitations: none
Time Seen by Provider: 10/03/24 18:50
Nursing documentation reviewed up to this point in time: agreed with
History of Present Illness
History of Present Illness:
29-year-old male with multiple concerns claims that he is in a headache over the past few days has had some left-sided chest pain described as achy is also has some stuffiness of his nose some sore throat intermittently as well as body aches.
Denies any specific fevers denies. Has had some intermittent vomiting but has been able to tolerate by mouth.
Past History
Past History
ED Past Medical History: None
ED Past Surgical History: None
Social History
Tobacco: Other
Alcohol: Daily
Review of Systems
Review of Systems
Allergies reviewed?: Yes
All Other Systems: ROS reviewed and negative except as documented in HPI and ROS
Phy Exam
Physical Exam
Physical Exam:
GENERAL: Alert , in no apparent distress
EYE: pupils equal and reactive
NECK: Supple, no significant adenopathy.
ENT: o/p clr, mmm.
CARDIAC: Regular rate and rhythm .
LUNGS: Clear breath sounds bilaterally, no acute respiratory distress, no wheezes/rales/rhonchi
ABDOMEN: Soft, without focal tenderness, no r/g, no cvat
NEUROLOGICAL: Alert and oriented, no focal neuro deficits
SKIN: Warm and dry, skin intact.
MUSCULOSKELETAL: No edema, well perfused.
PSYCH: Normal and appropriate interaction.
Scores
Heart Score for Chest Pain Patients
STEMI patient?: No
History: Slightly or Non-Suspicious
ECG: Normal
Age: </= 45 years
Risk Factors: No Risk Factors
Troponin: </= Normal Limit
Heart Score for Chest Pain Patients: 0
Heart Score Risk: 2.5% MACE over next 6 weeks
Course
Orders/Labs/Results
Orders:
Orders
10/03/24 16:19
EKG [Electrocardiogram (*1)] Urgent
Reason for Study: Chest Pain
EKG- Treatment ONCE
10/03/24 16:40
COVID-19 Antigen Urgent
Source: Nasal Swab
Complete Blood Count/With Diff Urgent
Comprehensive Metabolic Panel Urgent
Troponin I Urgent
INF RAPID [Influenza A+B Rapid Molecular] Urgent
STEFFANY Source: Nasal Swab
Specimen Description:
10/03/24 19:10
CT Head W/o Iv Contrast Urgent
Comment:
Reason For Exam: [place], worst of life
Diphenhydramine [Benadryl] 25 mg IV NOW STA
Ketorolac [Toradol] 15 mg IV NOW STA
Metoclopramide [Reglan] 10 mg IV NOW STA
CR Chest - 2 Views Urgent
Comment:
Reason For Exam: cp
10/03/24 19:12
0.9% Sodium Chloride 1000 ml [Nss] 1,000 ml IV BOLUS
10/03/24 20:10
Troponin I Urgent
10/03/24 21:52
Dexamethasone Sod Phosphate [Decadron] 10 mg IV NOW STA
Abnormal Lab Results
10/03/24
16:40
WBC 11.1 H 10^3/uL
(4.8-10.8)
RBC 4.63 L 10^6/uL
(4.70-6.10)
MCH 31.1 H pg
(27.0-31.0)
RDW 11.4 L %
(11.5-14.5)
Absolute Neuts (auto) 8.8 H 10^3/uL
(1.4-6.5)
Neutrophils % 78.9 H %
(42.2-75.2)
Lymphocytes % 14.7 L %
(20.5-51.1)
Creatinine 0.5 L mg/dL
(0.7-1.3)
Glucose 149 H mg/dl
(70-99)
10/03/24 16:40
10/03/24 16:40
Vital Signs
Initial and Last Documented VS:
Initial Vital Signs
Temp Pulse Resp BP Pulse Ox
98.8 F 106 20 147/95 99
10/03/24 16:27 10/03/24 16:27 10/03/24 16:27 10/03/24 16:27 10/03/24 16:27
Last Documented Vital Signs
Temp Pulse Resp BP Pulse Ox
98.8 F 72 20 111/71 100
10/03/24 16:27 10/03/24 22:01 10/03/24 22:01 10/03/24 22:01 10/03/24 22:01
MDM/Problems Addressed
MDM/Problems Addressed:
29-year-old male presenting to the emergency department today for concerns of multiple issues over the past few days. On arrival here vital signs normal patient no distress normal neurologic evaluation normal heart and lung exam EKG normal labs
unremarkable troponin negative x [address] negative chest x-ray normal no evidence of any life-threatening etiology of symptoms at this time vital signs normal throughout ER stay. Improvement of headache after receiving headache treatment.
*Critical Care Note
Total Time (30-74mins, 75-104mins- exclusive of procedures): Not Applicable
ED Attending Note
-
Portions of this chart may have been created with voice recognition software.� Occasional wrong word or��sound alike� substitutions may have occurred due to the inherent limitations of voice recognition software.
Discharge Plan
Departure
Patient Disposition: Home (Routine Discharge)
Date of Disposition: 10/03/24
Time of Disposition: 22:18
Patient with high blood pressure during this ER visit?: No
Condition: Good
Covid-19: Not Applicable
Discharge Problem:
Headache, Chest pain
Instructions: Chest Pain PCP Follow Up
Prescriptions:
No Action
omeprazole 20 mg tablet,delayed release (DR/EC)
40 mg PO DAILY 30 Days Qty: 60 0RF
melatonin 5 mg capsule
5 mg PO HS 30 Days Qty: 30 0RF
Referrals:
[facility] [Provider Group] - Follow up in 5-7 days
Ari Fontaine MD [Active] - Follow up in 5-7 days
Bora Mckay MD [Active] - Follow up in 5-7 days
NONE,* [Family Provider] -
Activity Restrictions/Additional Instructions:
You came to the emergency department today with multiple concerns. Here you had a reassuring assessment. Please follow-up closely with a primary care doctor. Return for any worsening, new or concerning symptoms.
Interventions
Interventions:
*Risk Screen - Suicide Last Done: 10/03/24 16:27
*General Assessment Last Done: 10/03/24 16:27
*Neglect/Abuse Screening Last Done: 10/03/24 18:06
*ED- Fall Risk Assessment Last Done: 10/03/24 18:06
*ED COVID-19 Vaccine History Last Done: 10/03/24 18:06
*Nursing Disposition Last Done: 10/03/24 22:04
ED- Cardiac Assessment Last Done: 10/03/24 18:12
Discharge Date and Time
Print Language: TONGAN
[2024-10-03] MEDS: DECADRON 10 MG IV (22:00)
[2024-10-03 22:01] VITALS: BP 111/71
== END 2024-10-03 22:32 | disposition home or self-care (01) ==
LOC: EMR 16:17
PROVIDERS: Physician Assistant; EMERGENCY PHYSICIAN Emergency Medicine
DX: R51.9 Headache, unspecified (principal); R07.89 Other chest pain; R11.2 Nausea with vomiting, unspecified
CPT/HCPCS: 99284; 96374; 96375; 96361; 70450; 71046; 80053; 84484; 85025; 87502; 87811; 93005

== ENCOUNTER 2024-10-27 16:09 | Inpatient (IN) | payer OTHER, SELFPAY ==
[2024-10-27] VITALS (14 sets, daily range): BP systolic 105–159; BP diastolic 56–85; BMI 24.2; BMI 25.2
--- NOTE | 2024-10-27 12:40 | ED.GENMED ---
History of Present Illness
General
Chief Complaint: Abdominal Symptoms
Source: patient and other
Exam Limitations: none
Time Seen by Provider: 10/27/24 12:39
Nursing documentation reviewed up to this point in time: agreed with
History of Present Illness
History of Present Illness:
Note:
CHIEF COMPLAINT(S)
Stomach pain and vomiting.
HISTORY OF PRESENT ILLNESS
The patient is a 29-year-old male who presented to the emergency department with complaints of stomach pain and vomiting. Earlier today, he reportedly passed out while walking, according to his friend. The friend noted that the patient has been
vomiting throughout the day. The patient reports that his entire stomach is in pain. It was noted that he consumes alcohol regularly, and the last intake was unspecified, but his friend mentioned he drinks alcohol daily. There is some suspicion of
alcohol withdrawal, though the patient did not explicitly confirm experiencing withdrawal symptoms.
SOCIAL DETERMINANTS AFFECTING HEALTH
The patient is reported to consume alcohol daily, which could impact his overall health and current condition.
ALLERGIES
The patient has no known drug allergies.
REVIEW OF SYSTEMS
- Gastrointestinal: Stomach pain, vomiting.
- Neurological: History of passing out.
PHYSICAL EXAM
- The patient was evaluated for the number of fingers he could see, suggesting some vision or consciousness testing.
- Nursing notes reviewed and vital signs reviewed.
PLAN
- Blood tests will be conducted.
- Administer anti-nausea medication and pain relief.
- Perform a computed tomography (CT) scan of the abdomen and head.
- Administer fluids intravenously.
- The patient is advised not to eat or drink until after the CT scan is performed.
DIFFERENTIAL DIAGNOSIS
The Differential Diagnosis includes, in no particular order and is not limited to:
1. Acute gastritis
2. Alcohol withdrawal syndrome
3. Peptic ulcer disease
4. Pancreatitis
5. Hepatic encephalopathy
6. Gastroenteritis
7. Gallbladder disease
8. Intestinal obstruction
9. Toxic ingestion
10. Intracranial event (e.g., seizure, stroke)
CARE-UPDATE
10/27/24 - 16:01
The patient is experiencing alcohol withdrawal symptoms, including hallucinations and vomiting, which have improved following administration of IV Ativan. A CT scan revealed a fluid-filled stomach but no other acute findings. The CT head scan showed
no significant findings. The plan is to admit the patient to the hospitalist for further treatment and management of withdrawal symptoms.
Disposition:
DIAGNOSIS
- Alcohol withdrawal (ICD-10: F10.239)
SUMMARY OF ENCOUNTER
The patient, a 29-year-old male, was seen in the emergency department due to stomach pain and vomiting. He experienced a syncopal episode while walking earlier, as reported by his friend. The friend also mentioned the patients regular daily alcohol
consumption. Suspected alcohol withdrawal was considered given the patients symptoms and alcohol use history. In the emergency department, a CT scan was performed that showed a fluid-filled stomach but no other acute abdominal findings, and a CT of
the head showed no significant findings. The patient was treated with IV Ativan, which resulted in improvements in his withdrawal symptoms, including hallucinations.
DISPOSITION
Admit
CONSIDERATION FOR ADMISSION
Patient was admitted to the hospitalist for further treatment and management of withdrawal symptoms.
ASSESSMENT
The patient is likely experiencing alcohol withdrawal symptoms, supported by his daily alcohol use, vomiting, and hallucinations.
EMERGENCY TREATMENTS ADMINISTERED
- Intravenous Ativan was administered, leading to symptom improvement.
- IV fluids were administered.
PLAN
The plan is to admit the patient to address withdrawal symptoms and monitor his condition. He was advised not to eat or drink until further evaluations could be completed.
INDEPENDENT INTERPRETATION OF TESTS
- My independent interpretation of the CT scan of the abdomen/pelvis indicated a fluid-filled stomach with no acute findings.
- My independent interpretation of the CT scan of the head showed no significant abnormalities.
MEDICATION RECONCILIATION
- Administered: IV Ativan, IV fluids
MEDICAL DECISION MAKING
Number and Complexity of Problems Addressed: The patients acute concerns included potential alcohol withdrawal alongside chronic alcohol use, impacting his health significantly.
Data: The complexity of the case warranted multiple diagnostic tests, including CT scans of the abdomen and head to rule out other pathologies.
Risk: Social determinants of health, notably polysubstance use (alcohol dependence), influenced treatment decisions. The consideration of hospitalization aimed to manage withdrawal safely. Radiation exposure from CT scans was necessary to exclude
intracranial or serious abdominal conditions.
Past History
Past History
ED Past Medical History: None
ED Past Surgical History: None
Social History
Tobacco: Other
Alcohol: Daily
Phy Exam
Physical Exam
Physical Exam:
Physical Exam
General: Afebrile, appears uncomfortable
Neck: supple. no meningeal signs. normal posterior pharynx
Heart: s1/s2 regular rate and rhythm, no murmur. equal radial
pulses.
HEENT: Pupils equal round reactive to light, EOMI
Lungs: no acute respiratory distress. clear bilaterally
Abdomen: normal bowel sounds. Diffuse tenderness no rebound or guarding. no CVAT
Neuro: alert and oriented. no focal neurological deficits cranial nerves II through XII intact
Skin: no rash
Psychiatric: well kept. interactive and cooperative
Extremities: no edema. no calf tenderness. negative homans. good distal pulses
Course
Orders/Labs/Results
Orders:
Orders
10/27/24 12:25
ECG [Electrocardiogram (*1)] Urgent
Reason for Study: Syncope
EKG- Treatment ONCE
10/27/24 12:56
Bedside Glucose- Treatment ONCE
IV Insert/Care/Rem.- Treatment PRN
0.9% Sodium Chloride 1000 ml [Nss] 1,000 ml IV BOLUS
10/27/24 12:57
CT Abd/pelvis W Iv Cont Urgent
Comment:
Reason For Exam: diffuse abd pain [address] Head W/o Iv Contrast Urgent
Comment:
Reason For Exam: syncope, fall, headache
10/27/24 13:00
Alcohol Urgent
B-Hydroxybutyrate Urgent
Complete Blood Count/With Diff Urgent
Comprehensive Metabolic Panel Urgent
Lipase Urgent
10/27/24 13:20
Morphine Sulfate 4 mg IV NOW STA
Ondansetron Injectable [Zofran] 4 mg IV NOW STA
10/27/24 13:31
Electrocardiogram (*1) Stat
Comment: ALREADY DONE IN ED
10/27/24 14:30
Lorazepam [Ativan] 2 mg IV NOW STA
10/27/24 15:53
Admit/Transfer Patient As Directed
Co-Sign Provider:
Level of Care: Inpatient admission
Assign to:: Telemetry
Physician / Group: [email or web address]
Diagnosis: alcohol withdrawa
Reason for Telemetry: Arrhythmia
Date to Stop Telemetry: 10/30/24
Time to Stop Telemetry: 11:00
Reason for Hospitalization: alcohol withdrawa
Expected length of stay greater than two midnights?: Yes
ELOS- Estimated Length of Stay in days: 2
I certify the patient meets the requirements for IP care: Yes
PRN Pain Medication Management As Directed
May give lesser potent ordered pain med per pt: Yes
preference::
Protocol:: Medication orders for pain may be administered in a
manner that supports deferring to patient preference
when the pt is:
- Requesting an ordered lesser potent pain medication.
Least to most potent pain medications are defined
as: acetaminophen < NSAID < tramadol < opioids
(morphine, oxycodone, hydromorphone).
- Requesting a lesser dose of the same medication IF
ORDERED.
- Requesting a less intrusive route of administration
if both routes are prescribed by the provider (PO <
IV).
10/27/24 15:54
Code Status As Directed
Resuscitation Status: Full Code
10/30/24 11:00
DC Protocol for Telemetry ONCE
Abnormal Lab Results
10/27/24 10/27/24
13:00 15:05
Absolute Neuts (auto) 7.3 H 10^3/uL
(1.4-6.5)
Absolute Lymphs (auto) 0.6 L 10^3/uL
(1.2-3.4)
Neutrophils % 87.8 H %
(42.2-75.2)
Lymphocytes % 7.2 L %
(20.5-51.1)
Creatinine 0.6 L mg/dL
(0.7-1.3)
Glucose 136 H mg/dl
(70-99)
Total Protein 9.3 H g/dl
(6.3-8.2)
Albumin 5.5 H g/dl
(3.5-5.0)
B-Hydroxybutyrate 0.65 H mmol/L
(0.02-0.27)
POC Glucose 101 H mg/dl
(70-99)
10/27/24 13:00
10/27/24 13:00
Vital Signs
Initial and Last Documented VS:
Initial Vital Signs
Temp Pulse Resp BP Pulse Ox
98.2 F 120 20 127/85 97
10/27/24 12:20 10/27/24 12:20 10/27/24 12:20 10/27/24 12:20 10/27/24 12:20
Last Documented Vital Signs
Temp Pulse Resp BP Pulse Ox
98.2 F 115 20 134/69 97
10/27/24 12:20 10/27/24 15:27 10/27/24 15:27 10/27/24 15:27 10/27/24 15:27
*Pulse Oximetry
SaO2: 97
Oxygen Mode of Delivery: Room air
Patient hypoxic: no
*EKG
Interpreted by ED Provider?: Yes
EKG Intrepretation Date: 10/27/24
EKG Intrepretation Time: 12:28
Interpretation: abnormal
Comparison EKG: no comparison EKG present
Heart Rate: 111
Rate: tachycardiac
Rhythm: sinus tachycardia
[place]: normal axis
Interval: normal interval
QRS Pattern: normal QRS
Ischemia: no ischemia
*Critical Care Note
Total Time (30-74mins, 75-104mins- exclusive of procedures): Not Applicable
ED Attending Note
-
Portions of this chart may have been created with voice recognition software.� Occasional wrong word or��sound alike� substitutions may have occurred due to the inherent limitations of voice recognition software.
Discharge Plan
Departure
Patient Disposition: Admit
Date of Disposition: 10/27/24
Time of Disposition: 15:29
Admit to: ICU
Presentation/result/management discussed w/ accepting MD/DO: Hospitalist
Condition: Fair
Discharge Problem:
Alcohol withdrawal, Acute nausea with nonbilious vomiting
Prescriptions:
No Action
Theragen Tablet
1 tab PO DAILY
bismuth subsalicylate [Pepto-Bismol] 262 mg/15 mL Suspension
262 - 524 mg PO BIDPRN PRN (Reason: stomach discomfort)
naproxen sodium [Aleve] 220 mg Tablet
220 mg PO BID PRN (Reason: leg pain)
melatonin 5 mg Tablet
5 mg PO HS
Eye Drops
2 - 3 drp BOTH EYES Q3HPRN PRN (Reason: eye irritation)
omeprazole 20 mg tablet,delayed release (DR/EC)
20 mg PO DAILY
Referrals:
NONE,* [Family Provider, Internal Medicine]
Interventions
Interventions:
*Risk Screen - Suicide Last Done: 10/27/24 12:20
*General Assessment Last Done: 10/27/24 15:29
*Neglect/Abuse Screening Last Done: 10/27/24 12:20
*ED- Fall Risk Assessment Last Done: 10/27/24 15:29
*ED COVID-19 Vaccine History Last Done: 10/27/24 15:29
Discharge Date and Time
Print Language: VENEZUELAN
[2024-10-27] MEDS: NSS 1000 IV ×2 (12:59→20:00)
[2024-10-27 13:06] LABS: % Basophils 0.8 % (0-2); % Eosinophils 0.1 % (0-6); % Immature Granulocytes 0.2 % (0-0.5); % Lymphocytes 7.2 % (20.5-51.1); % Monocytes 3.9 % (1.7-9.3); % Neutrophils 87.8 % (42.2-75.2); Absolute Basophils 0.1 10^3/uL (0-0.2); Absolute Lymphocytes 0.6 10^3/uL (1.2-3.4); Absolute Monocytes 0.3 10^3/uL (0.1-0.6); Absolute Neutrophils 7.3 10^3/uL (1.4-6.5); Hemoglobin 15.2 g/dL (13.0-18.0); Mean Corp Hgb Conc. 35.3 g/dL (33.0-37.0); Mean Corpuscular Hgb 30.9 pg (27.0-31.0); Mean Corpuscular Volume 87.4 fL (80.0-94.0); Mean Platelet Volume 8.6 fL (7.4-10.4); Nucleated Red Blood Cells % 0 % (-); Platelet Count 370 10^3/uL (130-400); Red Blood Cell Count 4.92 10^6/uL (4.70-6.10); Red Cell Dist. Width 11.8 % (11.5-14.5); White Blood Cell Count 8.4 10^3/uL (4.8-10.8)
[2024-10-27] MEDS: ZOFRAN 4 MG IV ×2 (13:25→17:01)
[2024-10-27] MEDS: MORPHINE SULFATE 4 MG IV (13:25)
[2024-10-27 13:36] LABS: ALT (SGPT) 21 U/L (0-50); AST (SGOT) 26 U/L (17-59); Albumin 5.5 g/dl (3.5-5.0); Alcohol 78 mg/dl; Alkaline Phosphatase 108 U/L (38-126); Blood Urea Nitrogen 9 mg/dl (9-20); Calcium 10.1 mg/dl (8.4-10.2); Carbon Dioxide 24 mmol/L (22-30); Chloride 104 mmol/L (98-107); Glucose 136 mg/dl (70-99); Lipase 88 U/L (23-300); Potassium 4.2 mmol/L (3.5-5.1); Sodium 145 mmol/L (135-145); Total Bilirubin 0.7 mg/dl (0.2-1.3); Total Protein 9.3 g/dl (6.3-8.2); eGFR > 60.00
[2024-10-27 13:42] LABS: B-Hydroxybutyrate 0.65 mmol/L (0.02-0.27)
[2024-10-27] MEDS: ATIVAN 2 MG IV (14:46)
[2024-10-27 15:08] LABS: Glucose - Point of Care 101 mg/dl (70-99)
--- NOTE | 2024-10-27 15:56 | HPS.HSE ---
Family Physician
-
Family Physician: * NONE
Chief Complaint
-
syncope
History of Present Illness
29-year-old Kiswahili-speaking male without past medical history presenting for syncopal episode today. He drinks 12-13 drinks of alcohol every day last drink was on Friday. He had a syncopal episode today and fell and hit his head and is
complaining of pain behind his head and knees as well as abdominal pain and chest pain. He is having vomiting and has some chest pain. Denies blood in the vomit. Denies prior history of seizure.
Denies any drugs. Denies smoking.
Medical History
Past Medical History
Past Medical History: Reports None
Past Surgical History: Reports None
Social History
Tobacco: Non-smoker
Alcohol: Daily
Drug: None
Family History
Family History: Not pertinent
Allergies / Home Medications
Allergies reflects when Allergies were last updated in [facility].
Home Medications with original date entered in [facility]
Allergy/Medication List:
Allergies
Allergy/AdvReac Type Severity Reaction Status Date / Time
No Known Allergies Allergy Verified 10/27/24 12:20
Home Medications
Eye Drops 2 - 3 drp BOTH EYES Q3HPRN PRN eye irritation 10/27/24
bismuth subsalicylate 262 mg/15 mL oral suspension (Pepto-Bismol) 262 - 524 mg PO BIDPRN PRN stomach discomfort 10/27/24
melatonin 5 mg tablet 5 mg PO HS 10/27/24
naproxen sodium 220 mg tablet (Aleve) 220 mg PO BID PRN leg pain 10/27/24
omeprazole 20 mg tablet,delayed release 20 mg PO DAILY 10/27/24
therapeutic multivitamin 1 tab PO DAILY 10/27/24
Review of Systems
-
History Source: Patient
A 12 point ROS was completed and negative except as noted: Yes
Constitutional: Reports No Symptoms
EENT: Reports No Symptoms
Respiratory: Reports See HPI
Cardiac: Reports See HPI
Abdomen/GI: Reports See HPI
: Reports No Symptoms
Musculoskeletal: Reports No Symptoms
Skin: Reports No Symptoms
Neurological: Reports No Symptoms
Endocrine: Reports No Symptoms
Hematologic/Lymphatic: Reports No Symptoms
Psych: Reports No Symptoms
Physical Exam
Vital Signs
Vital Signs
Temp Pulse Resp BP Pulse Ox
98.2 F 115 20 134/69 97
10/27/24 12:20 10/27/24 15:27 10/27/24 15:27 10/27/24 15:27 10/27/24 15:27
Physical Exam
General: Well Developed, Well Nourished and No Apparent Distress
HEENT: NormoCephalic, Moist mucous membranes and Atraumatic
Respiratory: Clear
Cardiac: S1/S2, Regular Rhythm and Tachycardia; No Murmur or Rub
GI: Soft, Non Distended, Normal Bowel Sounds and Tender (diffuse ); No Organomegaly
Rectal: Deferred by Provider
Musculoskeletal: No Clubbing, No Cyanosis and No Edema
Skin: No Rash
Neuro: Nonfocal/grossly intact and Other (tremulous )
Laboratory Results
-
10/27/24 13:00
10/27/24 13:00
Laboratory Results
Total Bilirubin 0.7 mg/dl (0.2-1.3) 10/27/24 13:00
AST 26 U/L (17-59) 10/27/24 13:00
ALT 21 U/L (0-50) 10/27/24 13:00
Alkaline Phosphatase 108 U/L (38-126) 10/27/24 13:00
Lipase 88 U/L (23-300) 10/27/24 13:00
Data Reviewed
-
Lab Data: Labs Reviewed by me
Old Records: Reviewed
Impression/Plan
-
IMPRESSION:
PLAN:
# Alcohol withdrawal
-Alcohol level 78
- Alcohol withdrawal protocol
-Phenobarbital protocol
- IV fluids
- Thiamine and folic
# Syncopal episode related to alcohol withdrawal
- EKG shows sinus tachycardia
- CT head no acute abnormality
# Alcoholic gastritis
- Protonix 40 twice daily
Full code
DVT prophylaxis heparin
Regular diet
[2024-10-27] MEDS: ATIVAN 1 MG PO (19:00)
--- NOTE | 2024-10-27 19:53 | PTCARENOTE ---
Patient admitted from ED into room 2123. Patient AAOX3, Venezuelan speaking only, language line at bedside, admission questions completed with assistance of spanish interpreter/translator. Vitals on admission BP 155/82, HR 105, 99% RA, 99.6F oral temp. Patient sinus tach
low 100s on tele monitor. Patient calm and cooperative with care, able to communicate with assistance of spanish interpreter/translator that he is feeling nauseous with associated abd discomfort, mild diaphoresis, hand tremors visible to this RN. Patient states last
drink was Friday, normally drinks 12-13 alcoholic drinks daily per patient. MSAS score on admission 6, medicated with PRN PO ativan per protocol. Patient answered yes to feeling down, depressed/hopeless over last 2 weeks, denied any thoughts of
hurting himself/others and states no history of doing so. CM consulted for alcohol withdrawal per protocol. Patient states recent weight loss from decreased appetite, answered yes to trouble swallowing at home, nutrition and speech screenings placed
by this RN per protocol. Patient with fall at home prior to admission, bed alarm in place for patient safety, PT screening placed per protocol. Patient oriented to room and call briceño, verbalized understanding in regards to ringing for assistance.
IVF infusing.
[2024-10-27] MEDS: COMPAZINE 5 MG IV (19:54)
[2024-10-27] MEDS: PHENOBARBITAL 104 MG IV (19:55)
[2024-10-27] MEDS: THIAMINE INJECTION 200 MG IV (20:39)
[2024-10-27] MEDS: HEPARIN 5000 UNITS SC (20:39)
[2024-10-27] MEDS: PROTONIX 40 MG PO (20:39)
[2024-10-28] VITALS (7 sets, daily range): BP systolic 112–137; BP diastolic 69–90; PULSE 71–90
[2024-10-28] MEDS: NSS 1000 IV ×2 (05:02→15:01)
[2024-10-28 07:05] LABS: % Basophils 0.6 % (0-2); % Eosinophils 1.2 % (0-6); % Immature Granulocytes 0.2 % (0-0.5); % Lymphocytes 18.3 % (20.5-51.1); % Monocytes 9.8 % (1.7-9.3); % Neutrophils 69.9 % (42.2-75.2); Absolute Eosinophils 0.1 10^3/uL (0-0.7); Absolute Lymphocytes 1.2 10^3/uL (1.2-3.4); Absolute Monocytes 0.6 10^3/uL (0.1-0.6); Absolute Neutrophils 4.6 10^3/uL (1.4-6.5); Hematocrit 34.5 % (39.0-52.0); Hemoglobin 12.3 g/dL (13.0-18.0); Mean Corp Hgb Conc. 35.7 g/dL (33.0-37.0); Mean Corpuscular Hgb 31.5 pg (27.0-31.0); Mean Corpuscular Volume 88.2 fL (80.0-94.0); Mean Platelet Volume 9.2 fL (7.4-10.4); Nucleated Red Blood Cells % 0 % (-); Platelet Count 277 10^3/uL (130-400); Red Blood Cell Count 3.91 10^6/uL (4.70-6.10); Red Cell Dist. Width 11.4 % (11.5-14.5); White Blood Cell Count 6.5 10^3/uL (4.8-10.8)
[2024-10-28 07:18] LABS: ALT (SGPT) 15 U/L (0-50); AST (SGOT) 21 U/L (17-59); Albumin 4.1 g/dl (3.5-5.0); Alkaline Phosphatase 72 U/L (38-126); Blood Urea Nitrogen 6 mg/dl (9-20); Calcium 9.2 mg/dl (8.4-10.2); Carbon Dioxide 28 mmol/L (22-30); Chloride 102 mmol/L (98-107); Estimated Creatinine Clearance > 125 ml/min; Glucose 80 mg/dl (70-99); Potassium 3.6 mmol/L (3.5-5.1); Sodium 136 mmol/L (135-145); Total Bilirubin 1.2 mg/dl (0.2-1.3); Total Protein 6.9 g/dl (6.3-8.2); eGFR > 60.00
[2024-10-28] MEDS: PROTONIX 40 MG PO ×2 (08:45→20:57)
[2024-10-28] MEDS: HEPARIN 5000 UNITS SC ×2 (08:46→20:56)
[2024-10-28] MEDS: FOLVITE 1 MG PO (08:46)
[2024-10-28] MEDS: PEPTO-BISMOL 2 TABLET PO (08:46)
[2024-10-28] MEDS: THIAMINE INJECTION 200 MG IV ×2 (08:46→20:56)
[2024-10-28] MEDS: PHENOBARBITAL 97.5 MG IV ×3 (08:46→21:08)
--- NOTE | 2024-10-28 09:45 | CM ---
CM following re: discharge planning.
Reviewed pt's chart, met with pt.
Pt is a 29 year old Albanian speaking only male, admitted with primary dx of Syncope, Alcohol withdrawal. Alcohol level 78.
CM communicated with the pt via parts interpreter Line. Pt is undocumented immigrant from [facility], lives with brother 2SH, 1 step to enter, known to [facility] from previous admission and has [facility] information from previous admission and per
pt he did not follow up neither with [facility] nor [facility]. Pt is independent with functional ability, has been drinking heavily daily for a few years.
Pt referred to [facility], spoke to LAURIE Berman and he will meet with the pt today.
[facility] specialist will follow.
Pt has no PCP
[facility]acy: [facility]
D/C plan: home with [facility] to follow and brother support.
CM will follow with discharge plan update as hospitalization progresses
--- NOTE | 2024-10-28 11:40 | W.PN.HOSP.TC ---
Today's Communication/Plan
-
monitor vitals
see plan
cw MSAS
phenobarb
cw fluids
speech eval
Assessment / Plan
Assessment / Plan
General: Well Developed, Well Nourished and No Apparent Distress
HEENT: NormoCephalic, Moist mucous membranes and Atraumatic
Respiratory: Clear
Cardiac: S1/S2, Regular Rhythm and Tachycardia; No Murmur or Rub
GI: Soft, Non Distended, Normal Bowel Sounds,non tender
Musculoskeletal: No Edema
Neuro: Nonfocal/grossly intact and Other (tremulous )
Alcohol withdrawal
-Alcohol level 78
- Alcohol withdrawal protocol
-Phenobarbital protocol
- IV fluids
- Thiamine and folic
# Syncopal episode related to alcohol withdrawal
- EKG shows sinus tachycardia
- CT head no acute abnormality
Reported dysphagia
speech eval
Hepatic steatosis
CT abdomen/pelvis with moderate large amount of fluid without wall thickening. possibly third spacing
# Alcoholic gastritis
- Protonix 40 twice daily
Full code
DVT prophylaxis heparin
Anticipated Discharge: 24 - 48 hours
Subjective/Interval History
-
Date of Service: October 28, 2024
noted to have some dysphagia
Objective Data
-
Labs:
Laboratory Results
10/28/24
06:03
WBC 6.5
Hgb 12.3 L
Hct 34.5 L
Plt Count 277 D
Sodium 136 D
Potassium 3.6
Chloride 102
Carbon Dioxide 28
BUN 6 L
Creatinine 0.6 L
Glucose 80
Calcium 9.2
Total Bilirubin 1.2
AST 21
ALT 15
Alkaline Phosphatase 72
Vital Signs:
Vital Signs
Temp Pulse Resp BP Pulse Ox
98.3 F 83 16 121/74 99
10/28/24 11:21 10/28/24 11:21 10/28/24 11:21 10/28/24 11:21 10/28/24 11:21
I&O
10/27/24 10/28/24 10/29/24
06:59 06:59 06:59
Intake Total 1884 / 1884
Output Total 950 / 950
Balance 934 / 934
--- NOTE | 2024-10-28 11:42 | PTCARENOTE ---
language line used with patient this morning to discuss plan of care, any concerns patient may have, and medications being administered. pt verbalizing some trouble swallowing that started 2 days ago. MD made aware. speech consult placed per MD. pt
pleasant cooperative and had no questions or concerns at the time.
--- NOTE | 2024-10-28 12:15 | PTOTSP ---
Speech Language Pathology
Pt seen for clinical bedside swallow evaluation. Evaluation completed in Slovak. Pt stated he has had pain in chest when swallowing for months, but issue got significantly worse in the last 2 days. He also reports decreased appetite at baseline
and frequent nausea when eating. P.O. trials of puree, regular solids, and thin liquids provided. Adequate mastication, bolus formation, and A-P transit noted. No overt signs of aspiration. Complained of pain in mid-chest with swallowing. In
addition to the above, pt reported losing patches of hair and having headaches, both starting around the same time as the pain in chest with eating.
Recommend:
(1) Regular solids/thin liquids
(2) General aspiration precautions
(3) Meds as tolerated
(4) Consider GI consult either on inpatient basis or outpatient basis
(5) RESPIRATORY THERAPY MANAGER to sign off. Please reconsult as indicated
[2024-10-28] MEDS: ZOFRAN 4 MG IV (16:55)
[2024-10-28 19:07] LABS: Troponin I < 0.012 ng/ml
[2024-10-29] MEDS: NSS 1000 IV (00:49)
[2024-10-29 03:08] VITALS: BP 117/72
[2024-10-29 06:27] LABS: % Basophils 0.9 % (0-2); % Immature Granulocytes 0.2 % (0-0.5); % Lymphocytes 27.5 % (20.5-51.1); % Monocytes 9.6 % (1.7-9.3); % Neutrophils 54.8 % (42.2-75.2); Absolute Eosinophils 0.3 10^3/uL (0-0.7); Absolute Lymphocytes 1.2 10^3/uL (1.2-3.4); Absolute Monocytes 0.4 10^3/uL (0.1-0.6); Absolute Neutrophils 2.4 10^3/uL (1.4-6.5); Hematocrit 36.2 % (39.0-52.0); Hemoglobin 13.3 g/dL (13.0-18.0); Mean Corp Hgb Conc. 36.7 g/dL (33.0-37.0); Mean Corpuscular Hgb 31.4 pg (27.0-31.0); Mean Corpuscular Volume 85.6 fL (80.0-94.0); Mean Platelet Volume 9.3 fL (7.4-10.4); Nucleated Red Blood Cells % 0 % (-); Platelet Count 245 10^3/uL (130-400); Red Blood Cell Count 4.23 10^6/uL (4.70-6.10); Red Cell Dist. Width 11.4 % (11.5-14.5); White Blood Cell Count 4.3 10^3/uL (4.8-10.8)
[2024-10-29 06:49] LABS: ALT (SGPT) 19 U/L (0-50); AST (SGOT) 29 U/L (17-59); Albumin 4.5 g/dl (3.5-5.0); Alkaline Phosphatase 72 U/L (38-126); Blood Urea Nitrogen 4 mg/dl (9-20); Calcium 9.2 mg/dl (8.4-10.2); Carbon Dioxide 25 mmol/L (22-30); Chloride 105 mmol/L (98-107); Estimated Creatinine Clearance > 125 ml/min; Glucose 91 mg/dl (70-99); Potassium 3.5 mmol/L (3.5-5.1); Sodium 137 mmol/L (135-145); Total Bilirubin 0.8 mg/dl (0.2-1.3); Total Protein 7.4 g/dl (6.3-8.2); eGFR > 60.00
[2024-10-29 07:24] VITALS: BP 118/77
[2024-10-29] MEDS: FOLVITE 1 MG PO (08:51)
[2024-10-29] MEDS: PROTONIX 40 MG PO (08:51)
[2024-10-29] MEDS: PHENOBARBITAL 97.5 MG IV (08:52)
[2024-10-29] MEDS: HEPARIN 5000 UNITS SC (08:52)
[2024-10-29] MEDS: THIAMINE INJECTION 200 MG IV (08:52)
--- NOTE | 2024-10-29 11:30 | W.PN.HOSP.TC ---
Today's Communication/Plan
-
monitor vitals
see plan
symptoms resolved
cw PPI
GI f/u outpatient
dc today
librium
time of discharge 38 minutes
Assessment / Plan
Assessment / Plan
General: Well Developed, Well Nourished and No Apparent Distress
HEENT: NormoCephalic, Moist mucous membranes and Atraumatic
Respiratory: Clear
Cardiac: S1/S2, Regular Rhythm and Tachycardia; No Murmur or Rub
GI: Soft, Non Distended, Normal Bowel Sounds,non tender
Musculoskeletal: No Edema
Neuro: Nonfocal/grossly intact and no tremor
Alcohol withdrawal
-Alcohol level 78
- Alcohol withdrawal protocol
-Phenobarbital protocol; MSAS now consistently 0-1, does not need further phenobarbital. Patient currently has improved dramatically and wants to go home
DC further fluids
- Thiamine and folic
DC further phenobarbital, transition to Librium
# Syncopal episode related to alcohol withdrawal
- EKG shows sinus tachycardia
- CT head no acute abnormality
Reported dysphagia
speech evaluated; cw regular; GI f/u outpatient. reports his sx resolved now
Hepatic steatosis
CT abdomen/pelvis with moderate large amount of fluid without wall thickening. possibly third spacing
# Alcoholic gastritis
- Protonix 40 twice daily
Full code
DVT prophylaxis heparin
Anticipated Discharge: Today
Subjective/Interval History
-
Date of Service: October 29, 2024
denies pain
Objective Data
-
Labs:
Laboratory Results
10/29/24
05:39
WBC 4.3 L
Hgb 13.3
Hct 36.2 L
Plt Count 245
Sodium 137
Potassium 3.5
Chloride 105
Carbon Dioxide 25
BUN 4 L
Creatinine 0.5 L
Glucose 91
Calcium 9.2
Total Bilirubin 0.8
AST 29
ALT 19
Alkaline Phosphatase 72
Vital Signs:
Vital Signs
Temp Pulse Resp BP Pulse Ox
98.1 F 63 16 118/77 100
10/29/24 07:24 10/29/24 07:24 10/29/24 07:24 10/29/24 07:24 10/29/24 07:24
I&O
10/28/24 10/29/24 10/30/24
06:59 06:59 06:59
Intake Total 1884 / 1884 2740 / 2740
Output Total 950 / 950
Balance 934 / 934 2740 / 2740
[2024-10-29] MEDS: NSS IV (11:41)
--- NOTE | 2024-10-29 11:47 | W.DCSUMMARY ---
Discharge Summary
Discharge Data
Date of Admission: 10/27/24
Date of Discharge: 10/29/24
-
Pending Results: No
Hospital Course
29-year-old male with past medical history of alcohol use with abuse, alcoholic gastritis came to the hospital with alcohol withdrawal. Patient was initially started on phenobarbital protocol. Patient continued to improve over time. Since he was
improving and his MCI scores were persistently low, phenobarbital was then discontinued and he was transition to Librium. Prior to admission he also had a syncopal episode which was likely thought was secondary to alcohol and possible dehydration.
While he was in the hospital he also had reported dysphagia. He was seen by speech therapy who recommended possible GI follow-up outpatient. Patient did not had any further dysphagia episodes. CT scan was also done which showed hepatic steatosis.
Patient was instructed to follow-up closely with GI outpatient. If once patient symptoms continue to improve, he was then discharged home with instructions to follow-up with all his physicians outpatient.
Discharge Plan
-
Patient Disposition: Home (Routine Discharge)
Discharge Diagnosis/Procedures: Alcohol withdrawal
Syncope
Dysphagia
Hepatic steatosis
Alcoholic gastritis
Diet: As tolerated
Activity: As tolerated
Driving Restrictions: As prior to admission
Bathing Restrictions: None
Referrals:
Hansel Marques MD [Active, Gastroenterology] - in two to three weeks
NONE,* [Family Provider, Internal Medicine] - in less than 1 week
Prescriptions:
New
chlordiazepoxide HCl 5 mg Capsule
5 mg PO TID Qty: 6 0RF
pantoprazole 40 mg Tablet,Delayed Release (Dr/Ec)
40 mg PO BID Qty: 60 0RF
folic acid 1 mg Tablet
1 mg PO DAILY Qty: 30 0RF
thiamine mononitrate (vit B1) 100 mg Tablet
100 mg PO BID Qty: 60 0RF
Continued
therapeutic multivitamin Tablet
1 tab PO DAILY
bismuth subsalicylate [Pepto-Bismol] 262 mg/15 mL Suspension
262 - 524 mg PO BIDPRN PRN (Reason: stomach discomfort)
melatonin 5 mg Tablet
5 mg PO HS
Eye Drops
2 - 3 drp BOTH EYES Q3HPRN PRN (Reason: eye irritation)
Discontinued
naproxen sodium [Aleve] 220 mg Tablet
220 mg PO BID PRN (Reason: leg pain)
omeprazole 20 mg tablet,delayed release (DR/EC)
20 mg PO DAILY
Discharge Orders:
Discharge Patient (As Directed); Ordered 10/29/24
Ordered By: Erwin Fallon
Discharge Date and Time
Discharge Date/Time: 10/29/24 13:24
Print Language: GUATEMALAN
--- NOTE | 2024-10-29 11:59 | CM ---
CM following re: discharge planning.
Reviewed pt's chart, met with pt.
Discharge order noted. Pt is aware and he stated his brother will transport home.
[facility] met with the pt and resources for outpatient D&A treatment provided.
Pt will follow up with [facility]
D/C plan: home no needs. Brother to transport.
[2024-10-29 12:01] VITALS: BP 130/76
[2024-10-29] MEDS: LIBRIUM 5 MG PO (12:06)
== END 2024-10-29 13:24 | disposition home or self-care (01) | DRG 897 ==
LOC: 2 NORTH 16:09
PROVIDERS: Internal Medicine; ADMITTING PHYSICIAN Hospitalist; ATTENDING PHYSICIAN Internal Medicine; EMERGENCY PHYSICIAN Emergency Medicine
DX: F10.239 Alcohol dependence with withdrawal, unspecified (principal); K29.20 Alcoholic gastritis without bleeding; F10.251 Alcohol dependence with alcohol-induced psychotic disorder with hallucinations; R55 Syncope and collapse; R51.9 Headache, unspecified; K76.0 Fatty (change of) liver, not elsewhere classified; R13.10 Dysphagia, unspecified; W18.39XA Other fall on same level, initial encounter; Y93.01 Activity, walking, marching and hiking; Y92.9 Unspecified place or not applicable; Y90.3 Blood alcohol level of 60-79 mg/100 ml
CPT/HCPCS: 70450; 71045; 74177; 80053; 82010; 82077; 82962; 83690; 84484; 85025; 92610; 93005; 96361; 96374; 96375; 99285; Q9967

== ENCOUNTER 2024-11-13 17:48 | Inpatient (IN) | payer OTHER, SELFPAY ==
[2024-11-13] VITALS (11 sets, daily range): BP systolic 110–140; BP diastolic 56–99; BMI 22.5
[2024-11-13 13:11] LABS: Hematocrit 40.6 % (39.0-52.0); Hemoglobin 14.5 g/dL (13.0-18.0); Mean Corp Hgb Conc. 35.7 g/dL (33.0-37.0); Mean Corpuscular Volume 87.5 fL (80.0-94.0); Nucleated Red Blood Cells % 0 % (-); Platelet Count 488 10^3/uL (130-400); Red Cell Dist. Width 11.6 % (11.5-14.5)
[2024-11-13 13:25] LABS: ALT (SGPT) 27 U/L (0-50); AST (SGOT) 27 U/L (17-59); Albumin 5.0 g/dl (3.5-5.0); Alkaline Phosphatase 88 U/L (38-126); Blood Urea Nitrogen 10 mg/dl (9-20); Calcium 9.5 mg/dl (8.4-10.2); Carbon Dioxide 25 mmol/L (22-30); Chloride 101 mmol/L (98-107); Glucose 123 mg/dl (70-99); Potassium 4.1 mmol/L (3.5-5.1); Sodium 141 mmol/L (135-145); Total Protein 8.5 g/dl (6.3-8.2); eGFR > 60.00
[2024-11-13 13:29] LABS: Lipase 75 U/L (23-300)
[2024-11-13] MEDS: PROTONIX IV 40 MG IV (14:48)
[2024-11-13] MEDS: ZOFRAN 4 MG IV ×2 (14:48→19:50)
[2024-11-13] MEDS: REGLAN 10 MG IV (16:10)
[2024-11-13] MEDS: NSS 1000 IV (16:11)
--- NOTE | 2024-11-13 16:17 | ED.GENMED ---
History of Present Illness
General
Chief Complaint: Abdominal Symptoms
Time Seen by Provider: 11/13/24 12:37
History of Present Illness
History of Present Illness:
29-year-old male with history of alcohol abuse presents the emergency department for evaluation of lower chest pain and upper abdominal pain as well as intractable vomiting for the past several days. He reports he has been drinking in excess of 12
drinks nightly for the past month to help with sleep since he was last discharged in the hospital. Did not have any drinks Today. Denies any hematemesis or melena.
Past History
Past History
ED Past Medical History: None
ED Past Surgical History: None
Social History
Tobacco: Other
Alcohol: Daily
Review of Systems
Review of Systems
Allergies reviewed?: Yes
All Other Systems: ROS reviewed and negative except as documented in HPI and ROS
Phy Exam
Physical Exam
Physical Exam:
GEN: Well appearing, NAD, WDWN
HEENT: Oral mucosa moist, no scleral icterus
Cardiac: Tachycardic, regular
Lung: No respiratory distress, no tachypnea, lungs CTAB
Abdomen: Soft, diffusely tender in the epigastrium
MSK: No gross deformity or injuries
Skin: Good color, no pallor or jaundice, no rashes
Neuro: AO x3, moves all extremities freely
Psych: Calm, cooperative
Course
Orders/Labs/Results
Orders:
Orders
11/13/24 11:36
ECG [Electrocardiogram (*1)] Urgent
Reason for Study: Chest Pain
11/13/24 11:37
EKG- Treatment ONCE
11/13/24 12:58
Alcohol Urgent
Complete Blood Count/With Diff Urgent
Comprehensive Metabolic Panel Urgent
Lipase Urgent
Comment: ADD ON
11/13/24 13:09
Add On- LAB Urgent
Tests Added?: lipase
11/13/24 13:48
CR Chest - 2 Views Urgent
Comment:
Reason For Exam: chest pain
11/13/24 14:46
Ondansetron Injectable [Zofran] 4 mg IV NOW STA
Pantoprazole [Protonix IV] 40 mg IV NOW STA
11/13/24 16:01
0.9% Sodium Chloride 1000 ml [Nss] 1,000 ml IV BOLUS
Metoclopramide [Reglan] 10 mg IV NOW STA
11/13/24 16:18
Phenobarbital Sodium [Phenobarbital] 260 mg 0.9% Sodium Chloride 100 ml [Nss] 100 ml IV NOW
Abnormal Lab Results
11/13/24
12:58
WBC 12.6 H 10^3/uL
(4.8-10.8)
RBC 4.64 L 10^6/uL
(4.70-6.10)
MCH 31.3 H pg
(27.0-31.0)
Plt Count 488 H 10^3/uL
(130-400)
Absolute Neuts (auto) 11.3 H 10^3/uL
(1.4-6.5)
Absolute Lymphs (auto) 0.9 L 10^3/uL
(1.2-3.4)
Neutrophils % 89.8 H %
(42.2-75.2)
Lymphocytes % 6.9 L %
(20.5-51.1)
Creatinine 0.5 L mg/dL
(0.7-1.3)
Glucose 123 H mg/dl
(70-99)
Total Protein 8.5 H g/dl
(6.3-8.2)
11/13/24 12:58
11/13/24 12:58
Vital Signs
Initial and Last Documented VS:
Initial Vital Signs
Temp Pulse Resp BP Pulse Ox
99.0 F 112 18 130/92 97
11/13/24 11:26 11/13/24 11:26 11/13/24 11:26 11/13/24 11:26 11/13/24 11:26
Last Documented Vital Signs
Temp Pulse Resp BP Pulse Ox
99.0 F 96 20 125/75 98
11/13/24 11:26 11/13/24 15:15 11/13/24 15:15 11/13/24 15:00 11/13/24 16:18
MDM/Problems Addressed
MDM/Problems Addressed:
MSAS of 7, likely abdominal pain due to alcoholic gastritis as lipase is normal. Due to significant symptoms coupled with hallucinations will admit for alcohol withdrawal management
*Pulse Oximetry
SaO2: 98
Oxygen Mode of Delivery: Room air
Patient hypoxic: no
*Critical Care Note
Total Time (30-74mins, 75-104mins- exclusive of procedures): Not Applicable
ED Attending Note
-
Portions of this chart may have been created with voice recognition software.� Occasional wrong word or��sound alike� substitutions may have occurred due to the inherent limitations of voice recognition software.
Discharge Plan
Departure
Patient Disposition: Admit
Date of Disposition: 11/13/24
Time of Disposition: 16:28
Admit to: IMU
Presentation/result/management discussed w/ accepting MD/DO: Hospitalist
Discharge Problem:
Alcohol withdrawal, Acute alcoholic gastritis
Prescriptions:
No Action
therapeutic multivitamin Tablet
1 tab PO DAILY
bismuth subsalicylate [Pepto-Bismol] 262 mg/15 mL Suspension
262 - 524 mg PO BIDPRN PRN (Reason: stomach discomfort)
melatonin 5 mg Tablet
5 mg PO HS
Eye Drops
2 - 3 drp BOTH EYES Q3HPRN PRN (Reason: eye irritation)
chlordiazepoxide HCl 5 mg Capsule
5 mg PO TID Qty: 6 0RF
pantoprazole 40 mg Tablet,Delayed Release (Dr/Ec)
40 mg PO BID Qty: 60 0RF
folic acid 1 mg Tablet
1 mg PO DAILY Qty: 30 0RF
thiamine mononitrate (vit B1) 100 mg Tablet
100 mg PO BID Qty: 60 0RF
Referrals:
UNKNOWN - PT DOES,NOT KNOW [Family Provider]
Interventions
Interventions:
*Risk Screen - Suicide Last Done: 11/13/24 12:52
*General Assessment Last Done: 11/13/24 12:52
*Neglect/Abuse Screening Last Done: 11/13/24 12:52
*ED- Fall Risk Assessment Last Done: 11/13/24 12:52
*ED COVID-19 Vaccine History Last Done: 11/13/24 12:52
FL-Yuneda-Sanysfcplb Assessment Last Done: 11/13/24 13:06
Discharge Date and Time
Print Language: NEPALESE
[2024-11-13] MEDS: PHENOBARBITAL 104 MG IV (16:54)
--- NOTE | 2024-11-13 17:06 | HPS.HSE ---
Addendum entered and electronically signed by Todd Anderson MD 11/13/24 17:55:
Allergies
Allergy/AdvReac Type Severity Reaction Status Date / Time
No Known Allergies Allergy Verified 11/13/24 11:26
Home Medications
melatonin 5 mg tablet 5 mg PO HS 10/27/24
therapeutic multivitamin 1 tab PO DAILY 10/27/24
folic acid 1 mg tablet 1 mg PO DAILY #30 tabs 10/29/24
pantoprazole 40 mg tablet,delayed release 40 mg PO BID #60 tabs 10/29/24
aspirin-sodium bicarbonate-citric acid 324 mg effervescent tablet 2 ea PO DAILYPRN PRN gerd 11/13/24
ibuprofen 200 mg tablet (Advil) 200 mg PO DAILYPRN PRN mild pain 11/13/24
thiamine HCl (vitamin B1) 100 mg tablet 100 mg PO BID 11/13/24
Original Note:
Family Physician
-
Family Physician: NOT KNOW UNKNOWN - PT DOES
Chief Complaint
-
nausea and vomiting
History of Present Illness
HPI was obtained using conference planning manager ID [id number]
29-year-old male who is presenting with complaints of nausea, vomiting abdominal pain. Patient was recently admitted to the hospital and was discharged last month. Patient with multiple hospitalization with alcohol withdrawal. Patient stated
since discharge from the hospital he started drinking since November 06 till November 11. Patient said he has been drinking rum mixed in with dark beer. Has been constantly drinking. States while he is on a drinking binge he does not eat. During this
episode of drinking next day sometimes he does have episodes of auditory hallucinations. States he is also feeling extremely weak, dehydrated. States he is also hungry. States he is feels mild lightheaded. States of episode of nausea and
vomiting. Said vomitus is liquids only. Due to persistent vomiting also complaining of epigastric abdominal pain. Denies any diarrhea. States urine is dark brown and sometimes it smells worse than his normal. Denies any fevers or chills.
Denies any headache. States of lightheadedness at times. States of feet pain. Denies any prior history of alcohol withdrawal seizure. Denies any blood in the vomitus. Denies any numbing or tingling, back pain or increase in urinary urgency or
frequency of urination.
Medical History
Past Medical History
Past Medical History: Reports Other
Additional Past Medical History:
Alcohol abuse daily basis
Alcoholic gastritis
Hepatic steatosis
Dysphagia
Past Surgical History: Reports None
Social History
Tobacco: Non-smoker
Alcohol: Daily
Drug: None
Family History
Family History: CAD (Father)
Allergies / Home Medications
Allergies reflects when Allergies were last updated in [facility].
Home Medications with original date entered in [facility]
Allergy/Medication List:
Medications on admission are unable to be verified or confirmed at this time.
Review of Systems
-
History Source: Patient
A 12 point ROS was completed and negative except as noted: Yes
Physical Exam
Vital Signs
Vital Signs
Temp Pulse Resp BP Pulse Ox
99.0 F 96 20 125/75 98
11/13/24 11:26 11/13/24 15:15 11/13/24 15:15 11/13/24 15:00 11/13/24 16:18
Physical Exam
General: Well Developed, Well Nourished, No Apparent Distress and Other (Alcohol smell on the breath)
HEENT: NormoCephalic, Moist mucous membranes and Atraumatic
Respiratory: Clear
Cardiac: S1/S2 and Regular Rhythm; No Murmur or Rub
GI: Soft, Non Distended, Normal Bowel Sounds and Tender (Epigastric region); No Organomegaly
Rectal: Deferred by Provider
Musculoskeletal: No Clubbing, No Cyanosis and No Edema
Skin: No Rash
Neuro: Awake, Alert, Oriented, AO x 3 and Nonfocal/grossly intact
Psych: Calm
Laboratory Results
-
11/13/24 12:58
11/13/24 12:58
Laboratory Results
Total Bilirubin 0.6 mg/dl (0.2-1.3) 11/13/24 12:58
AST 27 U/L (17-59) 11/13/24 12:58
ALT 27 U/L (0-50) 11/13/24 12:58
Alkaline Phosphatase 88 U/L (38-126) 11/13/24 12:58
Lipase 75 U/L (23-300) 11/13/24 12:58
Impression/Plan
-
#Alcohol abuse-daily basis
#Acute alcohol withdrawal
Alcohol level 63.
MSAS score of 7 on admission.
Status post phenobarbital loading dose in the ER
Will start patient on phenobarbital taper regimen
Ativan per the protocol
MSAS ordered
Aggressive IV fluid resuscitation
Patient with significantly high alcohol intake and high risk of worsening withdrawals leading to delirium tremens. Monitor in IMU.
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
#Nausea and vomiting likely secondary to gastritis likely secondary to alcohol
Start patient on full liquids
Continue with IV fluid resuscitation
Continue with IV PPI
Advance diet as tolerated
Lipase normal.
#Leukocytosis likely reactive in the setting of alcohol abuse
Continue to trend for now.
If spikes fever then check UA, blood cultures. May need to consider abdominal imaging at the point
Chest x-ray is pending
#Hepatic steatosis
Likely secondary alcohol abuse
outpatient follow-up
Full code
DVT prophylaxis Lovenox
I spent a total of 80 minutes with the patient or on the floor. More than 50% of this time involved counseling and coordination of care.
[2024-11-13] MEDS: TYLENOL 650 MG PO (18:41)
[2024-11-13] MEDS: ATIVAN 1 MG PO (18:42)
[2024-11-13] MEDS: LR 1000 IV (19:50)
[2024-11-13] MEDS: FLUSH (NSS) 2 FLUSH IV (19:51)
[2024-11-13 20:10] LABS: Urine Character Clear (Clear)
[2024-11-13] MEDS: LOVENOX 40 MG SC (20:14)
[2024-11-13 20:52] LABS: Urine Red Blood Cell 0-2 /HPF (0-2); Urine Squamous Cell 0-2 /LPF (Few); Urine White Cell 0-2 /HPF (0-5)
[2024-11-13] MEDS: LUMINAL 97.2 MG PO (22:10)
[2024-11-13] MEDS: THIAMINE INJECTION 200 MG IV (23:26)
[2024-11-14] VITALS (11 sets, daily range): BP systolic 114–137; BP diastolic 65–92; BMI 22.5
[2024-11-14] MEDS: TYLENOL 650 MG PO ×2 (02:03→15:44)
[2024-11-14] MEDS: LR 1000 IV ×4 (02:04→22:20)
[2024-11-14 03:45] LABS: Hematocrit 33.9 % (39.0-52.0); Hemoglobin 12.0 g/dL (13.0-18.0); Mean Corp Hgb Conc. 35.4 g/dL (33.0-37.0); Mean Corpuscular Volume 87.8 fL (80.0-94.0); Nucleated Red Blood Cells % 0 % (-); Platelet Count 335 10^3/uL (130-400); Red Cell Dist. Width 11.3 % (11.5-14.5)
[2024-11-14 03:49] LABS: APTT 31.4 Sec (23.4-35.0); INR 1.07; PT 14.3 Sec (11.4-14.6)
[2024-11-14 04:06] LABS: ALT (SGPT) 20 U/L (0-50); AST (SGOT) 22 U/L (17-59); Albumin 3.9 g/dl (3.5-5.0); Alkaline Phosphatase 65 U/L (38-126); Blood Urea Nitrogen 6 mg/dl (9-20); Calcium 9.4 mg/dl (8.4-10.2); Carbon Dioxide 27 mmol/L (22-30); Chloride 104 mmol/L (98-107); Estimated Creatinine Clearance > 125 ml/min; GGTP 80 U/L (15-73); Glucose 93 mg/dl (70-99); Magnesium 1.8 mg/dl (1.6-2.3); Potassium 3.7 mmol/L (3.5-5.1); Sodium 134 mmol/L (135-145); Total Protein 6.4 g/dl (6.3-8.2); eGFR > 60.00
--- NOTE | 2024-11-14 04:27 | PTCARENOTE ---
Pt received overnight as admission to IMU for ETOH WD. Bengali speaking only. Language line in room. On MSAS. MSAS 4, 1, 1 overnight. Admits to epigastric pain 6-8. Received Tylenol with good relief. Nausea/vomiting when first arrived to floor
received Zofran as ordered with good relief and no n/v since. Mild tremors noted, no fevers, SR on CM 60's-80's with one burst to 122 while asleep for just a few seconds. On Phenobarbital taper. IVF's infusing as ordered. Using urinal at bedside for
clear yellow urine. UA/drug screen sent. Rest of VSS. Turns self in bed. Oriented to room and surroundings. Demonstrated use of call briceño. Call briceño remains within reach. Will continue to monitor.
[2024-11-14] MEDS: FOLVITE 1 MG PO (07:56)
[2024-11-14] MEDS: NSS (PRESERVATIVE FREE) 10 ML IV (07:56)
[2024-11-14] MEDS: PROTONIX IV 40 MG IV (07:56)
[2024-11-14] MEDS: THIAMINE INJECTION 200 MG IV ×3 (07:56→22:09)
[2024-11-14] MEDS: LUMINAL 97.2 MG PO ×3 (07:56→22:09)
--- NOTE | 2024-11-14 09:12 | CM ---
CM following re: discharge planning.
Reviewed pt's chart, met with pt.
Pt is a 29 year old [place] speaking only male, admitted with primary dx of Alcohol abuse-daily basis. Acute alcohol withdrawal
Alcohol level 63. Nausea and vomiting likely secondary to gastritis likely secondary to alcohol
Pt is well known to this CM from previous admiossion. Pt is undocumented immigrant from [facility], lives with brother 2SH, 1 step to enter, known to [facility] from previous admission and has [facility] information from previous admission and
per pt he did not follow up neither with [facility] nor [facility]. Pt is independent with functional ability, has been drinking heavily daily for a few years.
Pt referred to [facility], spoke to LAURIE Berman and he will meet with the pt today.
[facility] specialist will follow.
Pt has no PCP, follows at [facility]
Ph[facility]acy: [facility]
D/C plan: home with [facility] to follow and brother support.
CM will follow with discharge plan update as hospitalization progresse
--- NOTE | 2024-11-14 12:38 | W.PN.HOSP.TC ---
Today's Communication/Plan
-
Advance diet and monitor for tolerance
Continue to IV fluids
Continue with phenobarbital protocol
Monitor for withdrawal closely
Assessment / Plan
Assessment / Plan
General: Well Developed, Well Nourished, No Apparent Distress
HEENT: NormoCephalic, Moist mucous membranes and Atraumatic
Respiratory: Clear
Cardiac: S1/S2 and Regular Rhythm; No Murmur or Rub
GI: Soft, Non Distended, Normal Bowel Sounds and non tender No Organomegaly
Rectal: Deferred by Provider
Musculoskeletal: No Clubbing, No Cyanosis and No Edema
Skin: No Rash
Neuro: Awake, Alert, Oriented, AO x 3 and Nonfocal/grossly intact, less tremelous,
Psych: Calm
#Alcohol abuse-daily basis
#Acute alcohol withdrawal
Alcohol level 63.
MSAS score of 7 on admission.
Status post phenobarbital loading dose in the ER
Continue with phenobarbital taper regimen
Ativan per the protocol
MSAS ordered
Aggressive IV fluid resuscitation
Patient with significantly high alcohol intake and high risk of worsening withdrawals leading to delirium tremens. Monitor in IMU.
Did education counselor patient on complete cessation
#Nausea and vomiting likely secondary to gastritis likely secondary to alcohol
Tolerated liquids. Advance to regular.
Continue with IV fluid resuscitation
Continue with IV PPI
Advance diet as tolerated
Lipase normal.
#Leukocytosis likely reactive in the setting of alcohol abuse
Continue to trend for now.
If spikes fever then check UA, blood cultures. May need to consider abdominal imaging at the point
Resolved.
#Hepatic steatosis
Likely secondary alcohol abuse
outpatient follow-up
Full code
DVT prophylaxis Lovenox
Anticipated Discharge: > 48 hours
Subjective/Interval History
-
Date of Service: November 14, 2024
States improvement in abdominal discomfort
States improvement in nausea
Objective Data
-
Labs:
Laboratory Results
11/14/24
03:27
WBC 6.2
Hgb 12.0 L
Hct 33.9 L
Plt Count 335 D
PT 14.3
INR 1.07
APTT 31.4
Sodium 134 L
Potassium 3.7
Chloride 104
Carbon Dioxide 27
BUN 6 L
Creatinine 0.5 L
Glucose 93
Calcium 9.4
Total Bilirubin 1.1
AST 22
ALT 20
Alkaline Phosphatase 65
Vital Signs:
Vital Signs
Temp Pulse Resp BP Pulse Ox
98.9 F 79 17 121/92 99
11/14/24 11:12 11/14/24 06:00 11/14/24 06:00 11/14/24 06:00 11/14/24 06:00
I&O
11/13/24 11/14/24 11/15/24
06:59 06:59 06:59
Intake Total 1350 / 1350
Output Total 500 / 500
Balance 850 / 850
Data Reviewed
-
Total Time Spent with Patient (in minutes): 55
--- NOTE | 2024-11-14 16:58 | PTCARENOTE ---
Assumed care of Pt at shift change; Pt resting comfortably in bed; Communicated using language line as Pt is macedonian-speaking only; AAO x 3, calm/pleasant; MSAS ~ 0 or 1 throughout shift; Taking fluids well, voiding frequently; OOB to bathroom
with standby assist; Will continue to monitor and assess.
[2024-11-14] MEDS: LOVENOX 40 MG SC (17:41)
[2024-11-14] MEDS: ANESTHETIC LOZENGE 1 LOZENGE PO (22:09)
[2024-11-14] MEDS: ATIVAN 1 MG PO (22:20)
--- NOTE | 2024-11-14 22:58 | PTCARENOTE ---
Patient c/o sore throat earlier this evening. RN discussed with MULU Barron, new order for Cepacol lozenges prn. Lozenge administered per order. Patient noted to be restless, mild tremor noted, and c/o nausea. MSAS 5 at that time. PRN lorazepam
administered per protocol. Patient currently resting in bed, call briceño within reach, will continue to monitor patient closely.
[2024-11-15] VITALS (11 sets, daily range): BP systolic 114–138; BP diastolic 73–92
[2024-11-15] MEDS: ATIVAN 1 MG PO (04:37)
[2024-11-15] MEDS: ANESTHETIC LOZENGE 1 LOZENGE PO (04:37)
[2024-11-15 05:07] LABS: Hematocrit 37.2 % (39.0-52.0); Hemoglobin 13.4 g/dL (13.0-18.0); Mean Corp Hgb Conc. 36.0 g/dL (33.0-37.0); Mean Corpuscular Volume 87.1 fL (80.0-94.0); Nucleated Red Blood Cells % 0 % (-); Platelet Count 378 10^3/uL (130-400); Red Cell Dist. Width 11.4 % (11.5-14.5)
[2024-11-15 05:18] LABS: ALT (SGPT) 21 U/L (0-50); AST (SGOT) 25 U/L (17-59); Albumin 4.4 g/dl (3.5-5.0); Alkaline Phosphatase 76 U/L (38-126); Blood Urea Nitrogen 6 mg/dl (9-20); Calcium 9.3 mg/dl (8.4-10.2); Carbon Dioxide 27 mmol/L (22-30); Chloride 104 mmol/L (98-107); Estimated Creatinine Clearance > 125 ml/min; Glucose 90 mg/dl (70-99); Potassium 3.5 mmol/L (3.5-5.1); Sodium 136 mmol/L (135-145); Total Protein 7.1 g/dl (6.3-8.2); eGFR > 60.00
[2024-11-15] MEDS: FOLVITE 1 MG PO (08:30)
[2024-11-15] MEDS: LUMINAL 97.2 MG PO ×2 (08:30→15:35)
[2024-11-15] MEDS: PROTONIX IV 40 MG IV (08:31)
[2024-11-15] MEDS: THIAMINE INJECTION 200 MG IV ×3 (08:31→21:35)
[2024-11-15] MEDS: NSS (PRESERVATIVE FREE) 10 ML IV (08:31)
[2024-11-15] MEDS: TYLENOL 650 MG PO ×2 (08:49→21:35)
[2024-11-15] MEDS: LR 1000 IV ×2 (10:16→21:35)
--- NOTE | 2024-11-15 10:20 | W.PN.HOSP.TC ---
Today's Communication/Plan
-
cont phenobarb taper regimen
monitor po intake
dec IVF rate
Assessment / Plan
Assessment / Plan
General: Well Developed, Well Nourished, No Apparent Distress
HEENT: NormoCephalic, Moist mucous membranes and Atraumatic
Respiratory: Clear
Cardiac: S1/S2 and Regular Rhythm; No Murmur or Rub
GI: Soft, Non Distended, Normal Bowel Sounds and non tender No Organomegaly
Rectal: Deferred by Provider
Musculoskeletal: No Clubbing, No Cyanosis and No Edema
Skin: No Rash
Neuro: Awake, Alert, Oriented, AO x 3 and Nonfocal/grossly intact, less tremelous,
Psych: Calm
#Alcohol abuse-daily basis
#Acute alcohol withdrawal
Alcohol level 63.
MSAS score of 7 on admission.
Status post phenobarbital loading dose in the ER
Patient with significantly high alcohol intake and high risk of worsening withdrawals leading to delirium tremens.
Continue with phenobarbital taper regimen
Ativan per the protocol
MSAS ordered
Dec IV fluid rate
Did college and career counselor patient on complete cessation
BCAREs following.
#Nausea and vomiting likely secondary to gastritis likely secondary to alcohol
Tolerated liquids. Advanced to regular.
Continue with IV fluid resuscitation
Continue with IV PPI
Advance diet as
Lipase normal.
#Leukocytosis likely reactive in the setting of alcohol abuse
Continue to trend for now.
If spikes fever then check UA, blood cultures. May need to consider abdominal imaging at the point
Resolved.
#Hepatic steatosis
Likely secondary alcohol abuse
outpatient follow-up
Full code
DVT prophylaxis Lovenox
Anticipated Discharge: 24 - 48 hours
Subjective/Interval History
-
Date of Service: November 15, 2024
Seen and examined using call box wirer
States of headache. states of dry cough.
Abd pain has improved
States feeling weak.
Objective Data
-
Labs:
Laboratory Results
11/15/24
04:46
WBC 5.6
Hgb 13.4
Hct 37.2 L
Plt Count 378
Sodium 136
Potassium 3.5
Chloride 104
Carbon Dioxide 27
BUN 6 L
Creatinine 0.6 L
Glucose 90
Calcium 9.3
Total Bilirubin 0.7
AST 25
ALT 21
Alkaline Phosphatase 76
Vital Signs:
Vital Signs
Temp Pulse Resp BP Pulse Ox
98.3 F 55 20 122/84 97
11/15/24 07:14 11/15/24 06:00 11/15/24 06:00 11/15/24 06:00 11/15/24 06:00
I&O
11/14/24 11/15/24 11/16/24
06:59 06:59 06:59
Intake Total 1350 / 1350 27114 / 01117
Output Total 500 / 500
Balance 850 / 850 86683 / 41464
[2024-11-15] MEDS: LOVENOX 40 MG SC (18:04)
[2024-11-15] MEDS: MELATONIN 5 MG PO (21:35)
[2024-11-15] MEDS: LUMINAL 64.8 MG PO (21:36)
[2024-11-16] VITALS (11 sets, daily range): BP systolic 114–144; BP diastolic 69–97
[2024-11-16 05:29] LABS: Hematocrit 38.6 % (39.0-52.0); Hemoglobin 14.0 g/dL (13.0-18.0); Mean Corp Hgb Conc. 36.3 g/dL (33.0-37.0); Mean Corpuscular Volume 86.2 fL (80.0-94.0); Nucleated Red Blood Cells % 0 % (-); Platelet Count 326 10^3/uL (130-400); Red Cell Dist. Width 11.6 % (11.5-14.5)
[2024-11-16] MEDS: LR 1000 IV ×2 (05:52→15:58)
[2024-11-16 06:09] LABS: ALT (SGPT) 34 U/L (0-50); AST (SGOT) 41 U/L (17-59); Albumin 4.3 g/dl (3.5-5.0); Alkaline Phosphatase 81 U/L (38-126); Blood Urea Nitrogen 3 mg/dl (9-20); Calcium 9.3 mg/dl (8.4-10.2); Carbon Dioxide 23 mmol/L (22-30); Chloride 104 mmol/L (98-107); Estimated Creatinine Clearance > 125 ml/min; Glucose 90 mg/dl (70-99); Potassium 3.5 mmol/L (3.5-5.1); Sodium 136 mmol/L (135-145); Total Protein 7.1 g/dl (6.3-8.2); eGFR > 60.00
[2024-11-16] MEDS: MYLICON 80 MG PO (06:16)
[2024-11-16] MEDS: LUMINAL 64.8 MG PO ×3 (08:30→20:47)
[2024-11-16] MEDS: PROTONIX IV 40 MG IV (08:30)
[2024-11-16] MEDS: THIAMINE INJECTION 200 MG IV ×2 (08:30→15:58)
[2024-11-16] MEDS: NSS (PRESERVATIVE FREE) 10 ML IV (08:30)
[2024-11-16] MEDS: FOLVITE 1 MG PO (08:30)
[2024-11-16] MEDS: TYLENOL 650 MG PO ×2 (08:38→20:46)
--- NOTE | 2024-11-16 11:32 | PTCARENOTE ---
Assumed care of patient this morning. He complains of a headache in the back of his head and reports it goes into his neck today. Medicated with Tylenol, see MAR. Pt denies all withdrawal questions, see MSAS flowsheet. Patient eating well, ate 100%
of breakfast. IVF maintained per order. Pt walking back and forth to bathroom with standby assist for IV pole. Assessment, care and VS as charted.
--- NOTE | 2024-11-16 12:22 | W.PN.HOSP.TC ---
Today's Communication/Plan
-
Monitor vital signs
see plan
Continue with fluids
Continue with alcohol withdrawal protocol
Continue with phenobarb
Assessment / Plan
Assessment / Plan
General: Well Developed, Well Nourished, No Apparent Distress
HEENT: NormoCephalic, Moist mucous membranes and Atraumatic
Respiratory: Clear
Cardiac: S1/S2 and Regular Rhythm; No Murmur or Rub
GI: Soft, Non Distended, Normal Bowel Sounds and non tender
Musculoskeletal: No Edema
Neuro: Awake, Alert, Oriented, AO x 3 and Nonfocal/grossly intact, less tremelous,
Psych: Calm
#Alcohol abuse-daily basis
#Acute alcohol withdrawal
Alcohol level 63.
MSAS score of 7 on admission.
Status post phenobarbital loading dose in the ER
Patient with significantly high alcohol intake and high risk of worsening withdrawals leading to delirium tremens.
Continue with phenobarbital taper regimen
Ativan per the protocol
MSAS ordered
Dec IV fluid rate
Did compliance counsel patient on complete cessation
BCAREs following.
#Nausea and vomiting likely secondary to gastritis likely secondary to alcohol
cw current diet
Continue with IV fluid resuscitation
Continue with IV PPI
Advance diet as
Lipase normal.
#Leukocytosis likely reactive in the setting of alcohol abuse
Resolved
#Hepatic steatosis
Likely secondary alcohol abuse
outpatient follow-up
Full code
DVT prophylaxis Lovenox
Anticipated Discharge: Within 24 hours
Subjective/Interval History
-
Date of Service: November 16, 2024
denies pain
Objective Data
-
Labs:
Laboratory Results
11/16/24
05:14
WBC 7.6
Hgb 14.0
Hct 38.6 L
Plt Count 326
Sodium 136
Potassium 3.5
Chloride 104
Carbon Dioxide 23
BUN 3 L
Creatinine 0.5 L
Glucose 90
Calcium 9.3
Total Bilirubin 0.7
AST 41
ALT 34
Alkaline Phosphatase 81
Vital Signs:
Vital Signs
Temp Pulse Resp BP Pulse Ox
98.2 F 59 24 133/89 98
11/16/24 07:00 11/16/24 10:00 11/15/24 14:00 11/16/24 10:00 11/16/24 00:15
I&O
11/15/24 11/16/24 11/17/24
06:59 06:59 06:59
Intake Total 74485 / 27038 5760 / 5760 480 / 480
Balance 07676 / 67989 5760 / 5760 480 / 480
[2024-11-16] MEDS: LOVENOX 40 MG SC (17:25)
[2024-11-16] MEDS: MELATONIN 5 MG PO (20:46)
[2024-11-17] VITALS: BP 128/82
[2024-11-17] MEDS: LR 1000 IV (00:29)
[2024-11-17 02:00] VITALS: BP 121/95
[2024-11-17 04:13] LABS: Hematocrit 38.6 % (39.0-52.0); Hemoglobin 13.9 g/dL (13.0-18.0); Mean Corp Hgb Conc. 36.0 g/dL (33.0-37.0); Mean Corpuscular Volume 87.1 fL (80.0-94.0); Nucleated Red Blood Cells % 0 % (-); Platelet Count 323 10^3/uL (130-400); Red Cell Dist. Width 11.6 % (11.5-14.5)
[2024-11-17 04:44] LABS: Blood Urea Nitrogen 6 mg/dl (9-20); Calcium 9.4 mg/dl (8.4-10.2); Carbon Dioxide 25 mmol/L (22-30); Chloride 105 mmol/L (98-107); Estimated Creatinine Clearance > 125 ml/min; Glucose 101 mg/dl (70-99); Potassium 3.7 mmol/L (3.5-5.1); Sodium 137 mmol/L (135-145); eGFR > 60.00
[2024-11-17] MEDS: TYLENOL 650 MG PO (05:21)
--- NOTE | 2024-11-17 06:01 | PTCARENOTE ---
Report called to Yasmin on 4, patient being transferred this morning.
[2024-11-17] MEDS: PROTONIX IV 40 MG IV (07:42)
[2024-11-17] MEDS: FOLVITE 1 MG PO (07:42)
[2024-11-17] MEDS: VITAMIN B1 100 MG PO (07:42)
[2024-11-17] MEDS: NSS (PRESERVATIVE FREE) 10 ML IV (07:43)
[2024-11-17] MEDS: LUMINAL 64.8 MG PO (07:52)
[2024-11-17 08:02] VITALS: BP 119/85
--- NOTE | 2024-11-17 10:42 | W.PN.HOSP.TC ---
Today's Communication/Plan
-
Monitor vitals
See plan
DC further phenobarbital
MSAS low
Patient feels well to discharge home today
Discharge today
Time of discharge 37 minutes
Assessment / Plan
Assessment / Plan
General: Well Developed, Well Nourished, No Apparent Distress
HEENT: NormoCephalic, Moist mucous membranes and Atraumatic
Respiratory: Clear
Cardiac: S1/S2 and Regular Rhythm; No Murmur or Rub
GI: Soft, Non Distended, Normal Bowel Sounds and non tender
Musculoskeletal: No Edema
Neuro: Awake, Alert, Oriented, AO x 3 and Nonfocal/grossly intact, less tremelous,
Psych: Calm
#Alcohol abuse-daily basis
#Acute alcohol withdrawal
Alcohol level 63.
MSAS score of 7 on admission.
Status post phenobarbital loading dose in the ER
Patient with significantly high alcohol intake and high risk of worsening withdrawals leading to delirium tremens.
Ativan per the protocol
MSAS ordered, scores low now. Has not required as needed Ativan. Patient feels well to go home today. Discharge home today. Does not need further phenobarbital due to very low MSAS. Patient has history of drinking and relapsing
Dec IV fluid rate
Did student loan counselor patient on complete cessation
BCAREs following.
#Nausea and vomiting likely secondary to gastritis likely secondary to alcohol
cw current diet
Continue with IV fluid resuscitation
Continue with IV PPI
tolerating diet
Lipase normal.
#Leukocytosis likely reactive in the setting of alcohol abuse
Resolved
#Hepatic steatosis
Likely secondary alcohol abuse
outpatient follow-up
Full code
DVT prophylaxis Lovenox
Anticipated Discharge: Today
Subjective/Interval History
-
Date of Service: November 17, 2024
Denies pain
Objective Data
-
Labs:
Laboratory Results
11/17/24
03:58
WBC 7.4
Hgb 13.9
Hct 38.6 L
Plt Count 323
Sodium 137
Potassium 3.7
Chloride 105
Carbon Dioxide 25
BUN 6 L
Creatinine 0.5 L
Glucose 101 H
Calcium 9.4
Vital Signs:
Vital Signs
Temp Pulse Resp BP Pulse Ox
98.4 F 68 14 119/85 95
11/17/24 08:02 11/17/24 08:02 11/17/24 08:02 11/17/24 08:02 11/17/24 09:50
I&O
11/16/24 11/17/24 11/18/24
06:59 06:59 06:59
Intake Total 5760 / 5760 4320 / 4320
Balance 5760 / 5760 4320 / 4320
--- NOTE | 2024-11-17 10:47 | W.DCSUMMARY ---
Discharge Summary
Discharge Data
Date of Admission: 11/13/24
Date of Discharge: 11/17/24
-
Pending Results: No
Hospital Course
29-year-old male with past medical history of alcohol use with abuse, gastritis, hepatic steatosis came to the hospital with alcohol withdrawal along with nausea and vomiting secondary to gastritis secondary to alcohol. Patient was started on
alcohol withdrawal protocol with phenobarbital and Ativan as needed. Patient symptoms markedly improved while he was here. On discharge he was educated on alcohol cessation. His nausea and vomiting also improved over time and he was able to
tolerate regular diet prior to discharge. Once his symptoms continue to improve, he was then discharged home with instructions to follow-up with all his physicians outpatient.
Discharge Plan
-
Patient Disposition: Home (Routine Discharge)
Discharge Diagnosis/Procedures: Acute alcohol withdrawal
Nausea and vomiting secondary to gastritis from alcohol
Leukocytosis
Diet: As tolerated
Activity: As tolerated
Driving Restrictions: As prior to admission
Bathing Restrictions: None
Referrals:
UNKNOWN - PT DOES,NOT KNOW [Family Provider] - in less than 1 week
Prescriptions:
Continued
therapeutic multivitamin Tablet
1 tab PO DAILY
melatonin 5 mg Tablet
5 mg PO HS
thiamine HCl (vitamin B1) 100 mg Tablet
100 mg PO BID
ibuprofen [Advil] 200 mg Tablet
200 mg PO DAILYPRN PRN (Reason: mild pain)
aspirin-sod bicarb-citric acid 324 mg Tablet, Effervescent
2 ea PO DAILYPRN PRN (Reason: gerd)
Patient Comments:
11/13/2024, pt. takes 2 tabs dailyprn.
pantoprazole 40 mg tablet,delayed release (DR/EC)
40 mg PO BID
folic acid 1 mg tablet
1 mg PO DAILY
Discharge Orders:
Discharge Patient (As Directed); Ordered 11/17/24
Ordered By: Erwin Fallon
Discharge Date and Time
Discharge Date/Time: 11/17/24 13:09
Print Language: MAORI
[2024-11-17 11:19] VITALS: BP 114/75
--- NOTE | 2024-11-17 11:49 | CM ---
Chart reviewed. Patient stable for d/c today
It was prev noted that [facility] was consulted for patient and a specialist was to meet w/ patient on 11/14
CM spoke w/ Cullen/[facility] who stated his colleague Yaz will speak w/ patient before he leaves about additional support/resources
Plan: Home w/ brother, no needs
== END 2024-11-17 13:09 | disposition home or self-care (01) | DRG 897 ==
LOC: 4 EAST ACU 17:48
PROVIDERS: Physician Assistant; ADMITTING PHYSICIAN Hospitalist; ATTENDING PHYSICIAN Internal Medicine; EMERGENCY PHYSICIAN Student in an Organized Health Care Education/Training Program
DX: F10.139 Alcohol abuse with withdrawal, unspecified (principal); R44.3 Hallucinations, unspecified; K29.00 Acute gastritis without bleeding; K76.0 Fatty (change of) liver, not elsewhere classified; K29.20 Alcoholic gastritis without bleeding; D72.829 Elevated white blood cell count, unspecified
CPT/HCPCS: 71046; 80048; 80053; 80306; 80307; 81003; 81015; 82077; 82977; 83690; 83735; 84100; 85025; 85610; 85730; 93005; 96361; 96374; 96375; 99285